=== PATIENT | female | born 1975 | race African-American/Black ===

== ENCOUNTER 2017-03-15 04:15 | Emergency (ER) | payer MEDICARE, MEDICAID ==
[~2017-03-15] VITALS: Ht 170.2 cm; Wt 108.9 kg
[2017-03-15 04:59] LABS: Basophils # (auto) 0 uL; Basophils % (auto) 0.2 % (0.0-2.0); DEFINITIVE VIEW TRANSMISSION; Eosinophils # (auto) 0 uL; Eosinophils % (auto) 0.1 % (0.0-7.0); Hematocrit 37.5 % (36.0-46.0); Hemoglobin 12.1 g/dL (12.2-16.2); Lymphocytes % (auto) 10.5 % (10.0-50.0); Mean Corpuscular Hemoglobin 25.7 pg (28.0-32.0); Mean Corpuscular Hgb Conc. 32.2 g/dL (32.0-36.0); Mean Corpuscular Volume 79.7 fL (80.0-100.0); Monocytes # (auto) 0.4 uL; Monocytes % (auto) 4.3 % (0.0-12.0); Neutrophils # (auto) 8.3 uL; Neutrophils % (auto) 84.9 % (37.0-80.0); Platelet Count (auto) 271 10^3/uL (140-450); White Blood Cell 9.8 10^3/uL (4.4-10.8)
[2017-03-15 05:13] LABS: Red Cell Distribution Width 23.3 % (11.6-16.0)
[2017-03-15 05:29] LABS: Albumin 3.4 g/dL (3.4-5.0); BUN/Creatinine Ratio 15.9; Calcium 8.4 mg/dL (8.5-10.1); Potassium 3.5 mmol/L (3.5-5.1)
[2017-03-15 05:31] LABS: Bilirubin, Total 0.2 mg/dL (0.2-1.0); Total Protein 7.9 g/dL (6.4-8.2)
[2017-03-15 05:42] LABS: Platelet Estimate Adequate
[2017-03-15 05:43] LABS: Anisocytosis Slight; Hypochromia Slight
[2017-03-15 05:59] LABS: B-Type Natriuretic Peptide 10.1 pg/mL (0-100)
[2017-03-15 06:00] LABS: Temperature: 22.7 C (20.0-25.0)
[2017-03-15 06:40] VITALS: BP 132/79
[2017-03-15] MEDS ORDERED: DICYCLOMINE HCL (10MG/ML) 2 ML AMPULE IM ONE ×2 (07:15)
[2017-03-15] MEDS ORDERED: diphenhdrAMINE HCL 50 MG/1 ML VL IM ONE (07:15)
[2017-03-15] MEDS ORDERED: LACTULOSE 20Gm/30ML SOLN PO ONE (07:15)
== END 2017-03-15 07:41 | disposition home or self-care (01) ==
LOC: ER 04:15
DX: K59.00 Constipation, unspecified (principal); N83.8 Other noninflammatory disorders of ovary, fallopian tube and broad ligament; I13.0 Hypertensive heart and chronic kidney disease with heart failure and stage 1 through stage 4 chronic kidney disease, or unspecified chronic kidney disease; N18.9 Chronic kidney disease, unspecified; I50.9 Heart failure, unspecified; Z87.442 Personal history of urinary calculi; Z90.49 Acquired absence of other specified parts of digestive tract
CPT/HCPCS: 36415; 74176; 80053; 83880; 84702; 85025; 96372; 99285; J0500; J1200

== ENCOUNTER 2017-09-16 03:50 | Emergency (ER) | payer OTHER, MEDICAID ==
[~2017-09-16] VITALS: Ht 170.2 cm; Wt 108.9 kg
[~2017-09-16 03:50] MED LIST: ALLO100T PO; DOCU100T15 PO; FERR325T PO; FLUO-125 PO; LACT10SO3 PO; MECL-87 PO; METO-158 PO; TRIATAB3 PO; [UNRECOGNIZED DRUG - CODE] PO
[2017-09-16] MEDS ORDERED: SODIUM CHLORIDE 0.9% 500 ML IVB ONE (04:08)
[2017-09-16] MEDS ORDERED: HYDROmorphone HCL 2 MG/ML VL IV ONE (04:15)
[2017-09-16] MEDS ORDERED: ONDANSETRON HCL 4 MG/2 ML VIAL IV ONE (04:30)
[2017-09-16] MEDS: PROMETHAZINE HCL 25 MG/ML 1ML IV PRN ×4 (05:10→14:29)
[2017-09-16 05:27] LABS: Basophils # (auto) 0.1 uL; Basophils % (auto) 0.8 % (0.0-2.0); Eosinophils # (auto) 0 uL; Hematocrit 34.6 % (36.0-46.0); Hemoglobin 11.1 g/dL (12.2-16.2); Lymphocytes # (auto) 0.8 uL; Lymphocytes % (auto) 7.7 % (10.0-50.0); Mean Corpuscular Hemoglobin 24.7 pg (28.0-32.0); Mean Corpuscular Hgb Conc. 32.2 g/dL (32.0-36.0); Mean Corpuscular Volume 76.8 fL (80.0-100.0); Mean Platelet Volume 8.7 fL (6.9-10.8); Monocytes # (auto) 0.4 uL; Monocytes % (auto) 4.1 % (0.0-12.0); Neutrophils # (auto) 9.3 uL; Neutrophils % (auto) 87.4 % (37.0-80.0); Nucleated Red Blood Cells % 0.1 %; Platelet Count (auto) 387 10^3/uL (140-450); Red Cell Distribution Width 14.7 % (11.8-14.3); White Blood Cell 10.7 10^3/uL (4.4-10.8)
[2017-09-16 06:01] LABS: Albumin 3.8 g/dL (3.4-5.0); BUN/Creatinine Ratio 11.2; Bilirubin, Total 0.3 mg/dL (0.2-1.0); Calcium 8.6 mg/dL (8.5-10.1); Potassium 3.5 mmol/L (3.5-5.1); Total Protein 8.8 g/dL (6.4-8.2)
[2017-09-16] MEDS ORDERED: SODIUM CHLORIDE 0.9% 1,000 ML IV ONE (06:43)
[2017-09-16] MEDS ORDERED: KETOROLAC TROMETH 30 MG/ML 1ML VIAL IV ONE (06:45)
[2017-09-16] MEDS ORDERED: PROMETHAZINE HCL 25 MG/ML 1ML IV PRN ×2 (06:45→15:15)
[2017-09-16 07:37] LABS: INR 1.01 (0.9-1.15); Partial Thromboplastin Time 25.5 sec (22.64-33.71)
[2017-09-16 09:58] LABS: Urine Bilirubin Negative (Negative); Urine Blood Negative /uL (Negative); Urine Color Yellow (Yellow); Urine Glucose TRACE mg/dL (Normal); Urine Ketone Negative (Negative); Urine Mucus FEW (None Seen); Urine Nitrite Negative (Negative); Urine RBC 1 /hpf (0 - 4); Urine Squamous Epithelial Cell FEW /hpf (<5); Urine Urobilinogen Normal (Negative); Urine pH 7.5 (5.0-8.0)
[2017-09-16] MEDS ORDERED: NALBUPHINE HCL 10 MG/1ml INJECTION IV ONE (14:15)
[2017-09-16] MEDS ORDERED: SODIUM CHLORIDE 0.9% 1,000 ML IV SCH (15:14)
[2017-09-16] MEDS ORDERED: LORazepam 2MG/ML-1ML VIAL IV PRN (15:15)
[2017-09-16] MEDS ORDERED: cefTRIAXone 1GM/50ML D5W 50 ML IV ONE (15:15)
[2017-09-16] MEDS ORDERED: HYDROmorphone HCL 2 MG/ML VL IV PRN (15:15)
[2017-09-16] MEDS ORDERED: NITROGLYCERIN 0.4 MG SL TAB SL PRN (15:15)
[2017-09-16] MEDS ORDERED: MORPHINE SULF INJ 2 MG/ML SYRINGE 1ML IV PRN ×2 (15:15)
[2017-09-16] MEDS ORDERED: FAMOTIDINE (10MG/ML) 2ML VL IV SCH (15:15)
[2017-09-16 17:30] VITALS: BP 136/97
[2017-09-16] MEDS ORDERED: metroNIDAZOLE 500MG/100ML 100 ML IV SCH (18:00)
[2017-09-17] MEDS ORDERED: cefTRIAXone 1GM/50ML D5W 50 ML IV SCH (09:00)
== END 2017-09-16 19:30 | disposition left against medical advice (07) ==
LOC: ER 03:50 → EDBD 03:50 → ER 19:30
DX: K56.609 Unspecified intestinal obstruction, unspecified as to partial versus complete obstruction (principal); D50.9 Iron deficiency anemia, unspecified; E11.65 Type 2 diabetes mellitus with hyperglycemia; I13.0 Hypertensive heart and chronic kidney disease with heart failure and stage 1 through stage 4 chronic kidney disease, or unspecified chronic kidney disease; I50.9 Heart failure, unspecified; N18.9 Chronic kidney disease, unspecified; Z87.442 Personal history of urinary calculi; Z79.899 Other long term (current) drug therapy; Z93.3 Colostomy status; Z98.890 Other specified postprocedural states
CPT/HCPCS: 36415; 74176; 80053; 81001; 81025; 82150; 83690; 83735; 84443; 85025; 85610; 85730; 94761; 96361; 96365; 96368; 96375; 99285; J0696; J1170; J1885; J2300; J2405; J2550; J3490; J7030

== ENCOUNTER 2023-09-24 14:48 | Inpatient (IN) | payer OTHER, MEDICAID ==
[~2023-09-24] VITALS: Ht 170.2 cm; Wt 92.6 kg
[~2023-09-24 14:48] MED LIST changes: -FERR325T PO; +FERR325T24 PO; -MECL-87 PO; +MECL1TAB32 PO
[2023-09-24] MEDS ORDERED: FUROSEMIDE 40 MG/4 ML VIAL IV ONE (16:30)
[2023-09-24] MEDS ORDERED: cefTRIAXone 1GM/50ML D5W 50 ML IV ONE (16:30)
[2023-09-24] MEDS ORDERED: AZITHROMYCIN 500MG/ 250ML 250 ML IV ONE (16:30)
[2023-09-24 16:50] LABS: COVID19 ANTIGEN SOFIA FIA NEGATIVE (NEGATIVE)
[2023-09-24 17:26] LABS: Alanine Aminotransferase 15 U/L (7-40); Alkaline Phosphatase 53 U/L (46-116); Calcium 8.1 mg/dL (8.5-10.1); Carbon Dioxide 27 mmol/L (20-30); Chloride 104 mmol/L (98-107); Glucose 126 mg/dL (74-106); Sodium 138 mmol/L (136-145)
[2023-09-24 17:27] LABS: Albumin 4.1 g/dL (3.2-4.8); Anion Gap 7 (5-15); Aspartate Aminotransferase 59 U/L (13-40); BUN/Creatinine Ratio 12.7 (10.0-20.0); Bilirubin, Total 0.6 mg/dL (0.2-1.0); Blood Urea Nitrogen 15 mg/dL (9-23); Total Protein 6.8 g/dL (5.7-8.2)
[2023-09-24 17:54] LABS: Eosinophils # (auto) 0 10 ^3/uL (0-0.8); Lymphocytes # (auto) 0.9 10 ^3/uL (0.4-5.4); Neutrophils # (auto) 4.5 10 ^3/uL (1.6-8.6); Red Blood Cells 3.57 10^6/uL (4.0-5.20)
[2023-09-24 17:56] LABS: Basophils # (auto) 0 10 ^3/uL (0-0.2); Basophils % (auto) 0.6 % (0.0-2.0); Hematocrit 23.3 % (36.0-46.0); Lymphocytes % (auto) 15.2 % (10.0-50.0); Mean Corpuscular Hemoglobin 19.5 pg (28.0-32.0); Mean Corpuscular Hgb Conc. 29.8 g/dL (32.0-36.0); Mean Corpuscular Volume 65.3 fL (80.0-100.0); Monocytes # (auto) 0.5 10 ^3/uL (0-1.3); Monocytes % (auto) 8.1 % (0.0-12.0); Neutrophils % (auto) 76.1 % (37.0-80.0); Nucleated Red Blood Cells % 0.2 %
[2023-09-24 17:58] LABS: Red Cell Distribution Width 22.1 % (11.8-14.3)
[2023-09-24 18:53] LABS: Partial Thromboplastin Time 32.9 SEC (24.5-34.5); Prothrombin Time 10.5 sec (9.3-11.8)
[2023-09-24] MEDS: FUROSEMIDE 20 MG/2 ML VIAL IV SCH (20:00)
[2023-09-24 20:09] LABS: Hematocrit 23.6 % (36.0-46.0)
[2023-09-24 20:46] LABS: % Iron Saturation 5.2 % (15-50); Folate (Folic Acid) 19.51 ng/mL (>5.38)
[2023-09-24 20:47] LABS: Ferritin 49.7 ng/mL (10-291)
[2023-09-24] MEDS: ACETAMINOPHEN 325 MG TAB PO PRN (21:49)
[2023-09-24] MEDS: ATORVASTATIN 20 MG TAB PO SCH (22:41)
[2023-09-25] VITALS (18 sets, daily range): BP systolic 105–132; BP diastolic 61–92; PULSE 68–93; RESP 11–22; TEMP 37.7; O2SAT 91–98
[2023-09-25] MEDS: ACETAMINOPHEN 325 MG TAB PO PRN ×3 (06:35→21:03)
[2023-09-25] MEDS: FUROSEMIDE 20 MG/2 ML VIAL IV SCH ×2 (06:35→19:06)
[2023-09-25 07:07] LABS: Urine Bacteria FEW /hpf (None Seen); Urine Blood 2+ /uL (Negative); Urine Clarity Clear (Clear); Urine Color Yellow (Yellow); Urine Protein, UAD TRACE (Negative); Urine Specific Gravity 1.014 (1.001-1.035); Urine Urobilinogen Normal (Negative); Urine WBC 3 /hpf (0 - 5)
[2023-09-25 07:36] LABS: Creatinine, Urine 119.91 mg/dL (30.0-125.0)
[2023-09-25] MEDS: cefTRIAXone 1GM/50ML D5W 50 ML IV SCH (09:43)
[2023-09-25 09:44] LABS: Rapid Influenza A Negative (Negative); Rapid Influenza B Negative (Negative)
[2023-09-25] MEDS ORDERED: PANTOPRAZOLE 40 MG/10 ML VIAL INJ IV SCH (10:00)
[2023-09-25] MEDS ORDERED: AZITHROMYCIN 500MG/ 250ML 250 ML IV SCH (10:00)
[2023-09-25] MEDS ORDERED: METHADONE HCL 10 MG TAB PO SCH (10:00)
[2023-09-25 10:15] LABS: Eosinophils # (auto) 0 10 ^3/uL (0-0.8); Hemoglobin 8.5 g/dL (12.2-16.2); Lymphocytes # (auto) 0.8 10 ^3/uL (0.4-5.4); Monocytes # (auto) 0.4 10 ^3/uL (0-1.3); Monocytes % (auto) 6.4 % (0.0-12.0); Neutrophils # (auto) 5.3 10 ^3/uL (1.6-8.6)
[2023-09-25 10:17] LABS: Basophils # (auto) 0 10 ^3/uL (0-0.2); Basophils % (auto) 0.3 % (0.0-2.0); Hematocrit 27.8 % (36.0-46.0); Lymphocytes % (auto) 12.6 % (10.0-50.0); Mean Corpuscular Hemoglobin 21.3 pg (28.0-32.0); Mean Corpuscular Hgb Conc. 30.7 g/dL (32.0-36.0); Mean Corpuscular Volume 69.3 fL (80.0-100.0); Neutrophils % (auto) 80.7 % (37.0-80.0); Nucleated Red Blood Cells % 0.1 %; Red Blood Cells 4.02 10^6/uL (4.0-5.20); White Blood Cell 6.6 10^3/uL (4.4-10.8)
[2023-09-25 10:24] LABS: Red Cell Distribution Width 25.1 % (11.8-14.3)
[2023-09-25] MEDS: PANTOPRAZOLE 40 MG/10 ML VIAL INJ IV SCH (10:25)
[2023-09-25 10:29] LABS: Alanine Aminotransferase 13 U/L (7-40); Albumin 4.1 g/dL (3.2-4.8); Alkaline Phosphatase 53 U/L (46-116); Anion Gap 4 (5-15); Aspartate Aminotransferase 46 U/L (13-40); Blood Urea Nitrogen 9 mg/dL (9-23); Calcium 8.2 mg/dL (8.5-10.1); Carbon Dioxide 29 mmol/L (20-30); Chloride 104 mmol/L (98-107); Glucose 148 mg/dL (74-106); Potassium 3.3 mmol/L (3.5-5.1); Sodium 137 mmol/L (136-145); Total Protein 7.1 g/dL (5.7-8.2)
[2023-09-25] MEDS ORDERED: POTASSIUM EFFERVESENT TAB 25 MEQ PO ONE (11:30)
[2023-09-25 12:42] LABS: Platelet Estimate Adequate
[2023-09-25 12:43] LABS: Anisocytosis Moderate
[2023-09-25 12:44] LABS: Hypochromia Moderate; Ovalocytes MODERATE; Tear Drop Cells FEW
[2023-09-25] MEDS: METHADONE HCL 10 MG TAB PO SCH ×3 (12:55→23:26)
[2023-09-25] MEDS: ALBUTEROL SULF 2.5 MG/0.5ML(0.5%) NEB SOLN NEB SCH (18:00)
[2023-09-25] MEDS: IPRATROPIUM BROM 0.5 MG/2.5ML INH SOL NEB SCH (18:00)
[2023-09-25] MEDS ORDERED: ALBUTEROL MEDNEB 2.5 mg/3ml NEB ONE (18:05)
[2023-09-25] MEDS: ATORVASTATIN 20 MG TAB PO SCH (23:26)
[2023-09-25] MEDS: METOPROLOL TARTRATE 25 MG TAB PO SCH (23:27)
[2023-09-26] VITALS (13 sets, daily range): BP systolic 118–137; BP diastolic 70–92; PULSE 72–85; RESP 17–20; TEMP 98.9–100.4; O2SAT 88–100
[2023-09-26] MEDS: ACETAMINOPHEN 325 MG TAB PO PRN ×3 (04:33→21:33)
[2023-09-26] MEDS ORDERED: ALBUTEROL MEDNEB 2.5 mg/3ml NEB ONE ×3 (06:03→17:53)
[2023-09-26] MEDS: METHADONE HCL 10 MG TAB PO SCH ×3 (06:05→21:31)
[2023-09-26] MEDS: FUROSEMIDE 20 MG/2 ML VIAL IV SCH (06:06)
[2023-09-26] MEDS: IPRATROPIUM BROM 0.5 MG/2.5ML INH SOL NEB SCH ×4 (07:23→18:45)
[2023-09-26] MEDS: ALBUTEROL SULF 2.5 MG/0.5ML(0.5%) NEB SOLN NEB SCH ×4 (07:23→18:46)
[2023-09-26] MEDS: BUDESONIDE (INHALATION) 0.5 MG/2 ML NEB NEB SCH ×3 (07:23→18:45)
[2023-09-26 07:27] LABS: Basophils # (auto) 0 10 ^3/uL (0-0.2); Basophils % (auto) 0.5 % (0.0-2.0); Eosinophils # (auto) 0 10 ^3/uL (0-0.8); Hematocrit 31.7 % (36.0-46.0); Hemoglobin 9.6 g/dL (12.2-16.2); Lymphocytes # (auto) 1.5 10 ^3/uL (0.4-5.4); Lymphocytes % (auto) 17.4 % (10.0-50.0); Mean Corpuscular Hemoglobin 21.3 pg (28.0-32.0); Mean Corpuscular Hgb Conc. 30.4 g/dL (32.0-36.0); Monocytes # (auto) 0.8 10 ^3/uL (0-1.3); Monocytes % (auto) 9.2 % (0.0-12.0); Neutrophils # (auto) 6.4 10 ^3/uL (1.6-8.6); Neutrophils % (auto) 72.9 % (37.0-80.0); Nucleated Red Blood Cells % 0.6 %; Red Blood Cells 4.53 10^6/uL (4.0-5.20); Red Cell Distribution Width 25.2 % (11.8-14.3); White Blood Cell 8.8 10^3/uL (4.4-10.8)
[2023-09-26 07:29] LABS: Chloride 101 mmol/L (98-107); Potassium 3.5 mmol/L (3.5-5.1); Sodium 137 mmol/L (136-145)
[2023-09-26 07:30] LABS: Anion Gap 6 (5-15); Calcium 8.9 mg/dL (8.5-10.1); Carbon Dioxide 30 mmol/L (20-30)
[2023-09-26 07:35] LABS: BUN/Creatinine Ratio 7.7 (10.0-20.0); Blood Urea Nitrogen 9 mg/dL (9-23); Glucose 100 mg/dL (74-106)
[2023-09-26] MEDS ORDERED: POTASSIUM EFFERVESENT TAB 25 MEQ PO ONE (08:30)
[2023-09-26] MEDS: PANTOPRAZOLE 40 MG/10 ML VIAL INJ IV SCH (09:53)
[2023-09-26] MEDS: METOPROLOL TARTRATE 25 MG TAB PO SCH ×2 (09:54→21:33)
[2023-09-26] MEDS: FUROSEMIDE 20 MG TAB PO SCH (09:55)
[2023-09-26] MEDS: DOXYCYCLINE 100MG/250ML 250 ML IV SCH ×2 (09:55→21:34)
[2023-09-26] MEDS: cefTRIAXone 1GM/50ML D5W 50 ML IV SCH (10:15)
[2023-09-26] MEDS ORDERED: IRON SUCROSE COMPLEX 200 MG in SODIUM CHL 0.9% 100 ML IV SCH (12:00)
[2023-09-26] MEDS: SODIUM FERR GLUC 62.5MG/5ML 125 MG in SODIUM CHL 0.9% 100 ML IV SCH (13:01)
[2023-09-26] MEDS: ATORVASTATIN 20 MG TAB PO SCH (21:33)
[2023-09-27] VITALS (9 sets, daily range): BP systolic 140–158; BP diastolic 83–94; PULSE 57–86; RESP 16–21; TEMP 97.9–98.5; O2SAT 91–100
[2023-09-27 05:29] LABS: Basophils # (auto) 0 10 ^3/uL (0-0.2); Eosinophils # (auto) 0 10 ^3/uL (0-0.8); Eosinophils % (auto) 0.1 % (0.0-7.0); Hemoglobin 8.4 g/dL (12.2-16.2); Nucleated Red Blood Cells % 0.3 %
[2023-09-27 05:32] LABS: Basophils % (auto) 0.4 % (0.0-2.0); Hematocrit 27.1 % (36.0-46.0); Lymphocytes # (auto) 1.5 10 ^3/uL (0.4-5.4); Lymphocytes % (auto) 19.8 % (10.0-50.0); Mean Corpuscular Hemoglobin 21.6 pg (28.0-32.0); Mean Corpuscular Volume 69.5 fL (80.0-100.0); Monocytes # (auto) 0.7 10 ^3/uL (0-1.3); Monocytes % (auto) 9.3 % (0.0-12.0); Neutrophils # (auto) 5.4 10 ^3/uL (1.6-8.6); Neutrophils % (auto) 70.4 % (37.0-80.0); White Blood Cell 7.7 10^3/uL (4.4-10.8)
[2023-09-27 05:45] LABS: Red Cell Distribution Width 25.6 % (11.8-14.3)
[2023-09-27 05:52] LABS: Anion Gap 7 (5-15); Calcium 8.8 mg/dL (8.5-10.1); Carbon Dioxide 29 mmol/L (20-30); Chloride 102 mmol/L (98-107); Potassium 3.5 mmol/L (3.5-5.1); Sodium 138 mmol/L (136-145)
[2023-09-27 05:58] LABS: BUN/Creatinine Ratio 12.1 (10.0-20.0); Blood Urea Nitrogen 12 mg/dL (9-23); Glucose 109 mg/dL (74-106)
[2023-09-27] MEDS: METHADONE HCL 10 MG TAB PO SCH ×2 (06:08→11:38)
[2023-09-27] MEDS: ALBUTEROL SULF 2.5 MG/0.5ML(0.5%) NEB SOLN NEB SCH ×2 (06:54→13:30)
[2023-09-27] MEDS: IPRATROPIUM BROM 0.5 MG/2.5ML INH SOL NEB SCH ×2 (06:54→13:29)
[2023-09-27] MEDS: BUDESONIDE (INHALATION) 0.5 MG/2 ML NEB NEB SCH (06:54)
[2023-09-27 08:06] LABS: Anisocytosis Moderate; Hypochromia Slight; Platelet Estimate Decreased
[2023-09-27] MEDS: PANTOPRAZOLE 40 MG/10 ML VIAL INJ IV SCH (09:31)
[2023-09-27] MEDS: DOXYCYCLINE 100MG/250ML 250 ML IV SCH (09:33)
[2023-09-27] MEDS: ACETAMINOPHEN 325 MG TAB PO PRN (09:34)
[2023-09-27] MEDS: FUROSEMIDE 20 MG TAB PO SCH (09:34)
[2023-09-27] MEDS: METOPROLOL TARTRATE 25 MG TAB PO SCH (09:38)
[2023-09-27] MEDS ORDERED: cefTRIAXone 1GM/50ML D5W 50 ML IV SCH (11:00)
[2023-09-27] MEDS: SODIUM FERR GLUC 62.5MG/5ML 125 MG in SODIUM CHL 0.9% 100 ML IV SCH ×2 (12:00→14:37)
[2023-09-27] MEDS ORDERED: FURO1TAB33 PO (14:12)
[2023-09-27] MEDS ORDERED: PRED20TA2 PO (14:12)
[2023-09-27] MEDS ORDERED: ALBUAER3 IN (14:12)
[2023-09-27] MEDS ORDERED: DOXY-448 PO (14:12)
[2023-09-27] MEDS ORDERED: POTA8TAB38 PO (14:12)
[2023-09-27] MEDS: POLYETHYLENE GLYCOL 17 GM PWDR PO ONE ×2 (14:36→14:45)
[2023-09-27] MEDS ORDERED: ALBUTEROL MEDNEB 2.5 mg/3ml NEB ONE (17:52)
== END 2023-09-27 17:30 | disposition home or self-care (01) | DRG 177 ==
LOC: ER 14:48 → TELE 18:50 → WEST WING 09-25 23:10
PROVIDERS: ADMIT Nurse Practitioner Family; ATTEND Nurse Practitioner Acute Care
PROC: 30233N1 Transfusion of Nonautologous Red Blood Cells into Peripheral Vein, Percutaneous Approach (ICD-10-PCS; principal; 2023-09-25)
DX: J15.69 Pneumonia due to other Gram-negative bacteria (principal); I21.A1 Myocardial infarction type 2; I50.43 Acute on chronic combined systolic (congestive) and diastolic (congestive) heart failure; J96.01 Acute respiratory failure with hypoxia; D62 Acute posthemorrhagic anemia; I13.0 Hypertensive heart and chronic kidney disease with heart failure and stage 1 through stage 4 chronic kidney disease, or unspecified chronic kidney disease; J44.0 Chronic obstructive pulmonary disease with (acute) lower respiratory infection; N17.9 Acute kidney failure, unspecified; J15.9 Unspecified bacterial pneumonia; K58.9 Irritable bowel syndrome, unspecified; Z20.822 Contact with and (suspected) exposure to COVID-19; D50.9 Iron deficiency anemia, unspecified; D25.9 Leiomyoma of uterus, unspecified; G89.29 Other chronic pain; N18.9 Chronic kidney disease, unspecified; E66.9 Obesity, unspecified; E78.5 Hyperlipidemia, unspecified; F17.200 Nicotine dependence, unspecified, uncomplicated; I27.21 Secondary pulmonary arterial hypertension; Z79.899 Other long term (current) drug therapy; Z80.0 Family history of malignant neoplasm of digestive organs; Z87.442 Personal history of urinary calculi; Z90.710 Acquired absence of both cervix and uterus; Z93.3 Colostomy status; Z78.0 Asymptomatic menopausal state
CPT/HCPCS: 36415; 36430; 71045; 71250; 76856; 80048; 80053; 81001; 82570; 82607; 82728; 82746; 83540; 83550; 83605; 83615; 83880; 84300; 84484; 85014; 85018; 85025; 85045; 85379; 85610; 85730; 86850; 86870; 86900; 86901; 86902; 86922; 87040; 87081; 87426; 87804; 93005; 93306; 93970; 94640; 99291; C9113; G0378; J0696; J1756; J3490

== ENCOUNTER 2024-07-30 13:44 | Inpatient (IN) | payer OTHER, MEDICAID ==
[~2024-07-30] VITALS: Ht 170.2 cm; Wt 86.5 kg
[~2024-07-30 13:44] MED LIST changes: +ALBUAER3 IN; +DOXY100C79 PO; +FURO1TAB33 PO; +MECL-90 PO; -MECL1TAB32 PO; +POTA8TAB38 PO; +PRED20TA2 PO
[2024-07-30 17:30] LABS: Basophils # (auto) 0.2 10 ^3/uL (0-0.2); Basophils % (auto) 2.9 % (0.0-2.0); Eosinophils # (auto) 0 10 ^3/uL (0-0.8); Eosinophils % (auto) 0.6 % (0.0-7.0); Hematocrit 17.9 % (36.0-46.0); Lymphocytes # (auto) 1.9 10 ^3/uL (0.4-5.4); Lymphocytes % (auto) 27.2 % (10.0-50.0); Mean Corpuscular Hemoglobin 20.5 pg (28.0-32.0); Mean Corpuscular Volume 68.2 fL (80.0-100.0); Monocytes # (auto) 0.6 10 ^3/uL (0-1.3); Neutrophils # (auto) 4.3 10 ^3/uL (1.6-8.6); Neutrophils % (auto) 61.3 % (37.0-80.0); Nucleated Red Blood Cells % 0.2 %; Platelet Count (auto) 558 10^3/uL (140-450); Red Blood Cells 2.62 10^6/uL (4.0-5.20)
[2024-07-30 17:34] LABS: Red Cell Distribution Width 25.5 % (11.8-14.3)
[2024-07-30 17:39] LABS: Hemoglobin 5.4 g/dL (12.2-16.2)
[2024-07-30 17:48] LABS: Alanine Aminotransferase 11 U/L (7-40); Albumin 3.9 g/dL (3.2-4.8); Alkaline Phosphatase 76 U/L (46-116); Anion Gap 4 (5-15); Aspartate Aminotransferase 13 U/L (13-40); BUN/Creatinine Ratio 16.4 (10.0-20.0); Bilirubin, Total 0.3 mg/dL (0.2-1.0); Blood Urea Nitrogen 18 mg/dL (9-23); Carbon Dioxide 30 mmol/L (20-31); Chloride 105 mmol/L (98-107); Glucose 80 mg/dL (74-106); Potassium 4.7 mmol/L (3.5-5.1); Sodium 139 mmol/L (136-145); Total Protein 8.1 g/dL (5.7-8.2)
[2024-07-30 18:50] LABS: Anisocytosis Moderate; Platelet Estimate Adequate
[2024-07-30 18:51] LABS: Hypochromia Marked; Stomatocytes Few
[2024-07-30 19:31] VITALS: PULSE 78; RESP 18; O2SAT 98
[2024-07-30] MEDS: SODIUM CHLORIDE 0.9% 1,000 ML IV ONE (19:49)
[2024-07-30 20:21] LABS: Urine Bacteria None Seen /hpf (None Seen)
[2024-07-30 20:39] LABS: Urine Blood 2+ /uL (Negative); Urine Clarity Clear (Clear); Urine Color Light-Yellow (Yellow); Urine Epithelial Cast FEW /hpf (<5); Urine Protein, UAD Negative (Negative); Urine Specific Gravity 1.019 (1.001-1.035); Urine Urobilinogen Normal (Negative); Urine WBC 1 /hpf (0 - 5)
[2024-07-30 21:12] LABS: INR 1.08 (0.9-1.15); Partial Thromboplastin Time 24.5 SEC (24.5-34.5); Prothrombin Time 11.4 sec (9.3-11.8)
[2024-07-30 21:17] LABS: Rapid Influenza A Negative (Negative); Rapid Influenza B Negative (Negative)
[2024-07-30 21:18] LABS: COVID19 ANTIGEN SOFIA FIA NEGATIVE (NEGATIVE)
[2024-07-30] MEDS: ONDANSETRON HCL 4 MG/2 ML VIAL IV ONE (21:40)
[2024-07-30] MEDS: HYDROcodone-ACET 5/325MG TAB PO ONE (21:41)
[2024-07-30] MEDS ORDERED: MORPHINE SULFATE INJ 2 MG/ml SYRG IV PRN (23:45)
[2024-07-30] MEDS ORDERED: HYDROcodone-ACET 5/325MG TAB PO PRN (23:45)
[2024-07-30] MEDS ORDERED: ACETAMINOPHEN 500 MG TAB PO PRN (23:45)
[2024-07-31] VITALS (14 sets, daily range): BP systolic 124–157; BP diastolic 75–92; PULSE 45–65; RESP 16–20; TEMP 98.2–98.9; O2SAT 99–100
[2024-07-31] MEDS ORDERED: MECLIZINE HCL 25 MG TAB PO PRN
[2024-07-31] MEDS: TRIAMTERENE/HCTZ 37.5/25 MG CAP/TAB PO SCH (00:15)
[2024-07-31 01:25] LABS: Free T3 2.29 pg/mL (2.3-4.2)
[2024-07-31 01:26] LABS: Free T4 (Free Thyroxine) 0.76 ng/dL (0.89-1.76)
[2024-07-31] MEDS: FUROSEMIDE 20 MG/2 ML VIAL IV SCH (03:30)
[2024-07-31 08:45] LABS: Basophils # (auto) 0.1 10 ^3/uL (0-0.2); Basophils % (auto) 1.2 % (0.0-2.0); Eosinophils # (auto) 0 10 ^3/uL (0-0.8); Monocytes # (auto) 0.6 10 ^3/uL (0-1.3)
[2024-07-31 08:49] LABS: Eosinophils % (auto) 0.5 % (0.0-7.0); Hematocrit 25.5 % (36.0-46.0); Lymphocytes # (auto) 0.6 10 ^3/uL (0.4-5.4); Lymphocytes % (auto) 8.5 % (10.0-50.0); Mean Corpuscular Hemoglobin 22.9 pg (28.0-32.0); Mean Corpuscular Hgb Conc. 31.3 g/dL (32.0-36.0); Mean Corpuscular Volume 73.1 fL (80.0-100.0); Monocytes % (auto) 8.7 % (0.0-12.0); Neutrophils % (auto) 81.1 % (37.0-80.0); Nucleated Red Blood Cells % 0.2 %; Platelet Count (auto) 478 10^3/uL (140-450); Red Blood Cells 3.48 10^6/uL (4.0-5.20); Red Cell Distribution Width 29.4 % (11.8-14.3); White Blood Cell 7.4 10^3/uL (4.4-10.8)
[2024-07-31 09:09] LABS: Alanine Aminotransferase 10 U/L (7-40); Albumin 4.2 g/dL (3.2-4.8); Alkaline Phosphatase 73 U/L (46-116); Anion Gap 2 (5-15); Aspartate Aminotransferase 18 U/L (13-40); BUN/Creatinine Ratio 12.9 (10.0-20.0); Bilirubin, Total 2.5 mg/dL (0.2-1.0); Blood Urea Nitrogen 13 mg/dL (9-23); Calcium 9.3 mg/dL (8.7-10.4); Carbon Dioxide 31 mmol/L (20-31); Chloride 101 mmol/L (98-107); Glucose 92 mg/dL (74-106); Potassium 3.9 mmol/L (3.5-5.1); Total Protein 9.1 g/dL (5.7-8.2)
[2024-07-31 09:13] LABS: Sodium 134 mmol/L (136-145)
[2024-07-31] MEDS ORDERED: FUROSEMIDE 20 MG TAB PO SCH (10:00)
[2024-07-31] MEDS ORDERED: ALLOPURINOL 100 MG TAB PO SCH (10:00)
[2024-07-31] MEDS ORDERED: LEVOTHYROXINE SODIUM 88 MCG TAB PO ONE (10:00)
[2024-07-31] MEDS ORDERED: METOPROLOL TARTRATE 50 MG TAB PO SCH (10:00)
[2024-07-31] MEDS ORDERED: FLUoxetine HCL 20 MG CAP PO SCH ×2 (10:00)
[2024-07-31] MEDS ORDERED: IRON SUCROSE COMPLEX 100 ML IV SCH (12:00)
[2024-07-31] MEDS ORDERED: FUROSEMIDE 20 MG/2 ML VIAL IV ONE (12:00)
[2024-08-01] MEDS ORDERED: LEVOTHYROXINE SODIUM 88 MCG TAB PO SCH (06:00)
== END 2024-07-31 10:00 | disposition left against medical advice (07) | DRG 811 ==
LOC: ER 13:46 → TELE 23:40
PROVIDERS: ATTEND Internal Medicine
PROC: 30233N1 Transfusion of Nonautologous Red Blood Cells into Peripheral Vein, Percutaneous Approach (ICD-10-PCS; principal; 2024-07-31)
DX: D62 Acute posthemorrhagic anemia (principal); I50.43 Acute on chronic combined systolic (congestive) and diastolic (congestive) heart failure; J96.01 Acute respiratory failure with hypoxia; I13.0 Hypertensive heart and chronic kidney disease with heart failure and stage 1 through stage 4 chronic kidney disease, or unspecified chronic kidney disease; J44.9 Chronic obstructive pulmonary disease, unspecified; Z53.29 Procedure and treatment not carried out because of patient's decision for other reasons; F32.9 Major depressive disorder, single episode, unspecified; E11.22 Type 2 diabetes mellitus with diabetic chronic kidney disease; N18.2 Chronic kidney disease, stage 2 (mild); I71.21 Aneurysm of the ascending aorta, without rupture; M10.9 Gout, unspecified; I27.20 Pulmonary hypertension, unspecified; D25.9 Leiomyoma of uterus, unspecified; Z79.4 Long term (current) use of insulin; Z87.442 Personal history of urinary calculi
CPT/HCPCS: 36415; 71045; 76856; 80053; 81001; 82306; 82607; 82962; 83036; 83605; 83880; 84439; 84443; 84481; 84484; 84702; 85025; 85610; 85730; 86850; 86870; 86900; 86901; 86902; 86922; 87426; 87804; 93005; 96361; 96374; G0378; J2405

== ENCOUNTER 2025-01-02 14:11 | Inpatient (IN) | payer OTHER, MEDICAID ==
[~2025-01-02] VITALS: Ht 170.2 cm; Wt 96.9 kg
[2025-01-02] VITALS (11 sets, daily range): BP systolic 140–165; BP diastolic 83–100; PULSE 52–65; RESP 11–18; TEMP 97.9–98.8; O2SAT 97–100
[2025-01-02 14:48] LABS: Basophils # (auto) 0.1 10 ^3/uL (0-0.2); Eosinophils # (auto) 0.1 10 ^3/uL (0-0.8); Hemoglobin 7.7 g/dL (12.2-16.2); Mean Corpuscular Volume 78.7 fL (80.0-100.0); White Blood Cell 6.4 10^3/uL (4.4-10.8)
[2025-01-02 14:49] LABS: Basophils % (auto) 1.5 % (0.0-2.0); Eosinophils % (auto) 1.2 % (0.0-7.0); Hematocrit 24.2 % (36.0-46.0); Lymphocytes % (auto) 31.7 % (10.0-50.0); Mean Corpuscular Hemoglobin 24.9 pg (28.0-32.0); Mean Corpuscular Hgb Conc. 31.6 g/dL (32.0-36.0); Monocytes # (auto) 0.4 10 ^3/uL (0-1.3); Monocytes % (auto) 6.5 % (0.0-12.0); Neutrophils # (auto) 3.8 10 ^3/uL (1.6-8.6); Neutrophils % (auto) 59.1 % (37.0-80.0); Nucleated Red Blood Cells % 0.2 %; Platelet Count (auto) 84 10^3/uL (140-450); Red Blood Cells 3.08 10^6/uL (4.0-5.20)
[2025-01-02 14:57] LABS: Chloride 106 mmol/L (98-107); Potassium 3.9 mmol/L (3.5-5.1); Sodium 139 mmol/L (136-145)
--- NOTE | 2025-01-02 14:57 | ED.PDOC ---
HOSPITALIST PHYSICIAN HPI Comments A 50 YEAR OLD FEMALE PRESENTS TO THE ED WITH COMPLAINT OF VAGINAL BLEEDING, DIZZINESS, AND FATIGUE. PATIENT STATES SHE HAS A HISTORY OF ANEMIA AND CHRONIC VAGINAL BLEEDING AND HAS BEEN EXPERIENCING VAGINAL BLEEDING OFF AND ON SINCE 2021. PATIENT REPORTS SHE HAD SURGERY TO REMOVE A UTERINE FIBROID IN 2021, BUT NOTES SHE HAS BEEN EXPERIENCING BLEEDING SINCE THEN. PATIENT STATES SHE HAS BEEN EXPERIENCING DIZZINESS, FATIGUE, AND MILD SHORTNESS OF BREATHE OVER THE LAST 2 WEEKS. PATIENT IS CONCERNED SHE MAY BE ANEMIC AGAIN SINCE SHE HAS A HISTORY OF ANEMIA AND HAD BLOOD TRANSFUSION LAST YEAR. PATIENT DENIES DYSURIA, HEMATURIA, VAGINAL DISCHARGE, FEVER, CHILLS, SHORTNESS OF BREATH, CHEST PAIN, ABDOMINAL PAIN, NAUSEA, VOMITING, HEADACHE, OR OTHER COMPLAINTS. NO OTHER SYMPTOMS OR MODIFYING FACTORS AT THIS TIME. PATIENT IS ALERT, ORIENTED X 4, AND HAS STEADY GAIT. Chief Complaint: Vaginal Bleed Time Seen by MD: 14:19 Reviewed Notes: Nurses Notes, Medications, Allergies Allergies: Coded Allergies: NO KNOWN ALLERGIES (Unverified , 03/15/17) Home Meds Active Scripts Potassium Chloride (Klor-Con 8) 8 Meq Tab, 8 MEQ PO DAILY for 60 Days, #60 TAB Prov:ALYSSA MERCER CONTENT CHECKER 09/27/23 Furosemide (Lasix) 20 Mg Tb, 1 TAB PO DAILY, #90 TAB 1 Refill Prov:ALYSSA MERCER NP 09/27/23 Albuterol Sulfate (VENTOLIN MDI) 90 Mcg Ih, 90 MCG IN Q4HP PRN for 30 Days, #1 INH 1 Refill Prov:ALYSSA MERCER NP 09/27/23 Prednisone (Prednisone) 20 Mg Tab, 20 MG PO DAILY for 5 Days, #5 MG Prov:ALYSSA MERCER CONTENT CHECKER 09/27/23 Doxycycline (Monohydrate) (Doxycycline) 100 Mg Cap, 1 MG PO BID for 7 Days, #14 CAP Prov:ALYSSA MERCER NP 09/27/23 Reported Medications Allopurinol (Allopurinol) 100 Mg Tab, 100 MG PO DAILY for 30 Days, MG 09/15/17 Fluoxetine Hcl (Fluoxetine Hcl) 20 Mg Cap, 20 MG PO PRN for 30 Days, MG 09/15/17 Meclizine Hcl (Meclizine Hcl) 25 Mg Tab, 25 MG PO PRN PRN for DIZZINESS for 30 Days, MG 09/15/17 Ferrous Sulfate (Ferrous Sulfate) 325 Mg Tab, 325 MG PO DAILY for 30 Days, MG 09/15/17 Metoprolol Tartrate (Metoprolol Tartrate) 50 Mg Tab, 50 MG PO BID for 30 Days, MG 09/15/17 Triamterene & Hydrochlorothiaz (Maxzide-25) Tab, 1 TAB PO PRN, #30 TAB 5 Refill s 09/15/17 Lactulose (Lactulose) 10 Gm/15 Ml Dya, 10 GM PO BID 09/15/17 Polyethylene Glycol (Glycolax) 3,350 Nf Pow, 3350 NF PO DAILY, POW 09/15/17 Docusate Sodium (Docusate Sodium) 100 Mg Tab, 100 MG PO DAILYP PRN for FOR CONSTIPATION for 30 Days, MG 09/15/17 Information Source: Patient, Spouse Mode of Arrival: Wheelchair Timing: Weeks Severity: Moderate Vaginal Discharge: None Vaginal Lesions: None Bleeding Quality: Bright Red Onset Of Mass/Bleeding: Unknown Last Consensual [place]: Unknown Control: None Blood Type: Unknown Symptoms of Possible : None Associated Signs and Symptoms: Vaginal Bleeding, Cramping Past Medical History PAST MEDICAL HISTORY: Anemia, Angina, CHF, CKF, COPD, HTN, Kidney Stones Surgical History: Denies all surgeries POLE INSPECTOR History: No Pertinent POLE INSPECTOR History Family History Family History: Reviewed,noncontributory to illness Social History Smoker: Non-Smoker Alcohol: Denies ETOH Use Drugs: Denies Drug Use Lives In: Home Constitutional: reports: fatigue, others (PALE ); denies: chills, diaphoresis, fever, malaise, sweats, weakness EENTM: denies: blurred vision, double vision, ear bleeding, ear discharge, ear drainage, ear pain, ear ringing, eye pain, eye redness, hearing loss, mouth pain, mouth swelling, nasal discharge, nose bleeding, nose congestion, nose pain, photophobia, tearing, throat pain, throat swelling, voice changes, others Respiratory: denies: cough, hemoptysis, orthopnea, SOB at rest, shortness of breath, SOB with excertion, stridor, wheezing, others Cardiovascular: denies: chest pain, dizzy spells, diaphoresis, Dyspnea on exertion, edema, irregular heart beat, left arm pain, lightheadedness, palpitations, PND, syncope, others Gastrointestinal: denies: abdomen distended, abdominal pain, blood streaked bowels, constipated, diarrhea, dysphagia, difficulty swallowing, hematemesis, melena, nausea, poor appetite, poor fluid intake, rectal bleeding, rectal pain, vomiting, others Genitourinary: reports: abnormal vagina bleeding; denies: burning, dyspareunia, dysuria, flank pain, frequency, hematuria, incontinence, pain, , vagina discharge, urgency, others Neurological: reports: dizziness; denies: fainting, headache, left sided numbness, left sided weakness, numbness, paresthesia, pre-existing deficit, right sided numbness, right sided weakness, seizure, speech problems, tingling, tremors, weakness, others Musculoskeletal: denies: back pain, gout, joint pain, joint swelling, muscle pain, muscle stiffness, neck pain, others Integumetry: denies: bruises, change in color, change in hair/nails, dryness, laceration, lesions, lumps, rash, wounds, others Allergic/Immunocompromised: denies: Difficulty Healing, Frequent Infections, Hives, Itching, others Hematologic/Lymphatic: reports: anemia; denies: blood clots, easy bleeding, easy bruising, swollen glands, others Endocrine: denies: excessive hunger, excessive sweating, excessive thirst, excessive urination, flushing, intolerance to cold, intolerance to heat, unexplained weight gain, unexplained weight loss, others Psychiatric: denies: anxiety, bipolar disorder, depression, hopeless, panic disorder, schizophrenia, sleepless, suicidal, others All Other Systems: Reviewed and Negative Physical Exam General Appearance: No Apparent Distress, Obese, Other (PALE ) HEENT: Normal ENT Inspection, PERRL/EOMI, Pharynx Normal, TMs Normal Neck: Full Range of Motion, Non-Tender, Normal, Normal Inspection Respiratory: Chest Non-Tender, Lungs Clear, No Accessory Muscle Use, No Respiratory Distress, Normal Breath Sounds Cardiovascular: No Edema, No JVD, No Murmur, No Gallop, Normal Peripheral Pulses, Regular Rate/Rhythm Breast Exam: Deferred Gastrointestinal: No Organomegaly, Non Tender, No Pulsatile Mass, Normal Bowel Sounds, Soft Genitalia: Deferred Pelvic: Normal External Exam, Tender Uterus, Vaginal Bleeding (MILD VAGINAL BLEEDING, NO BLOOD CLOTS. ) Rectal: Deferred Extremities: No calf tenderness, Normal capillary refill, Normal inspection, Normal range of motion, Non-tender, No pedal edema Musculoskeletal : Apperance: Normal Neurologic: Alert, buggy ladle tender II-XII nml as Tested, No Motor Deficits, Normal Affect, Normal Mood, No Sensory Deficits Cerebellar Function: Normal Reflexes: Normal Skin: Dry, Normal Color, Warm Peripheral Pulses: 2+ carotid (R), 2+ carotid (L) Lymphatic: No Adenopathy Was a procedure done? Was a procedure done?: No Differential Diagnosis (POLE INSPECTOR) Vaginal Bleeding: Dysmenorrhea, UTI, Vaginitis Comments UTERINE FIBROIDS, OVARIAN CYST, SYMPTOMATIC ANEMIA, BLOOD LOSS ANEMIA X-Ray, Labs, Meds, VS Vital Signs Date Time Temp Pulse Resp B/P (MAP) Pulse Ox O2 Delivery O2 Flow Rate FiO2 01/02/25 14:47 61 18 98 Room Air 01/02/25 14:47 99.0 61 18 148/94 (112) 98 99.0 01/02/25 14:17 99.0 61 18 148/94 (112) 98 Lab Test 01/02/25 15:13 01/02/25 14:41 01/02/25 14:39 Range/Units Prothrombin Time 11.2 9.3-11.8 sec Prothrombin Time INR 1.06 0.9-1.15 B-Type Natriuretic Peptide 27.99 0-100 pg/mL Urine Color Yellow Yellow Urine Clarity Clear Clear Urine pH 6.0 5.0-9.0 Urine Specific [place] 1.035 1.001-1.035 Urine Protein 1+ H Negative Urine Ketones Negative Negative Urine Blood 2+ H Negative /uL Urine Nitrite Negative Negative Urine Bilirubin Negative Negative Urine Urobilinogen 3 H Negative mg/dL Urine Leukocyte Esterase Negative Negative /uL Urine RBC 1 0 - 4 /hpf Urine Microscopic WBC 2 0-5 /HPF Urine Squamous Epithelial Cells Few <5 /hpf Urine Calcium Oxalate Crystals Few None Seen Urine Bacteria None seen None Seen /hpf Urine Mucus Few None Seen Urine Glucose Normal Normal mg/dL White Blood Count 6.4 4.4-10.8 10^3/uL Red Blood Count 3.08 L 4.0-5.20 10^6/uL Hemoglobin 7.7 L 12.2-16.2 g/dL Hematocrit 24.2 L 36.0-46.0 % Mean Corpuscular Volume 78.7 L 80.0-100.0 fL Mean Corpuscular Hemoglobin 24.9 L 28.0-32.0 pg Mean Corpuscular Hemoglobin Concent 31.6 L 32.0-36.0 g/dL Red Cell Distribution Width 32.0 H 11.8-14.3 % Platelet Count 84 L 140-450 10^3/uL Mean Platelet Volume 8.2 6.9-10.8 fL Neutrophils (%) (Auto) 59.1 37.0-80.0 % Lymphocytes (%) (Auto) 31.7 10.0-50.0 % Monocytes (%) (Auto) 6.5 0.0-12.0 % Eosinophils (%) (Auto) 1.2 0.0-7.0 % Basophils (%) (Auto) 1.5 0.0-2.0 % Neutrophils # (Auto) 3.8 1.6-8.6 10 ^3/uL Lymphocytes # (Auto) 2.0 0.4-5.4 10 ^3/uL Monocytes # (Auto) 0.4 0-1.3 10 ^3/uL Eosinophils # (Auto) 0.1 0-0.8 10 ^3/uL Basophils # (Auto) 0.1 0-0.2 10 ^3/uL Nucleated Red Blood Cells 0.2 % Platelet Estimate Decreased Clumped Platelets Few Hypochromasia (manual) Slight Anisocytosis (manual) Marked Microcytosis Slight Sodium Level 139 136-145 mmol/L Potassium Level 3.9 3.5-5.1 mmol/L Chloride Level 106 98-107 mmol/L Carbon Dioxide Level 30 20-31 mmol/L Anion Gap 3 L 5-15 Blood Urea Nitrogen 14 9-23 mg/dL Creatinine 1.30 H 0.550-1.02 mg/dL Glomerular Filtration Rate Calc 49 >90 mL/min BUN/Creatinine Ratio 10.8 10.0-20.0 Serum Glucose 87 74-106 mg/dL Calcium Level 9.1 8.7-10.4 mg/dL INDICATION: VAGINAL BLEEDING TECHNIQUE: Multiple real-time grayscale transabdominal sonographic images along with color and duplex Doppler of the uterus and ovaries were obtained. COMPARISON: US PELVIC on DOS: 07/31/24, US PELVIC on DOS: 09/24/23 FINDINGS: The uterus measures 12.03 x 7.42 x 6.33 cm. The endometrial stripe measures 0.17 cm. There is a 4.4 x 3.8 by 2.8 cm intramural mass in the uterus. This is of the largest of multiple intramural. And most likely a fibroid. The right ovary measures 3.3 x 3 x 1.6 cm right ovarian volume is 8.43 cc. There is a 1.9 by 1.25 x 1.53 cm anechoic lesion in the right ovary most likely follicle. The left ovary nonvisualized Subsequent color and duplex Doppler interrogation of the ovaries demonstrated symmetric vascular flow to both ovaries, though this does not exclude the possibility of torsion due to the dual blood supply. IMPRESSION: 1. Multiple intramural fibroids in the uterus largest measures 4.4 x 3.9 by 3.8 cm. ATED BY: PREETI PALACIO Jr., DO DICTATED DATE/TIME: 01/02/25 154 SIGNED BY: PREETI PALACIO Jr., SIGNED DATE/TIME: 01/02/251543 CC: X-Ray, Labs, Meds, VS Comment EXTERNAL MEDICAL RECORDS REVIEWED: [NONE] INDEPENDENT HISTORIANS: [NONE] SOCIAL DETERMINANTS OF HEALTH: [NONE] LABS ORDERED: CBC, BMP, BNP, UA, TYPE AND SCREEN, PT INR REVIEWED AND INTERPRETED RESULTS: HGB 7.7 IMAGING ORDERED: US PELVIS TREATMENTS ORDERED: NS 0.9 NS IV BOLUS AND PRBC 2 UNITS PROCEDURES PERFORMED: NONE CRITICAL CARE TIME: NONE I HAVE DISCUSSED THE PATIENT WITH THE ATTENDING PHYSICIAN DR. BAEZA AND HE AGREES WITH THE PATIENT'S PLAN OF CARE. UPON MY PHYSICAL EXAMINATION, THE PATIENT WAS ILL IN APPEARANCE, BUT WAS NOT IN ANY RESPIRATORY DISTRESS AT THIS TIME. MY DIFFERENTIAL DIAGNOSIS INCLUDES, VAGINAL BLEEDING, DUB, UTERINE FIBROID, OVARIAN CYST, BLOOD LOSS ANEMIA, SYMPTOMATIC ANEMIA, DEHYDRATION, ELECTROLYTE IMBALANCE, UTI, ACUTE CYSTITIS. AN ULTRASOUND WAS DONE FOR THE PATIENT WHICH REVEALED MULTIPLE UTERINE FIBROIDS. LABS WERE DONE FOR THE PATIENT WHICH REVEALED A HEMOGLOBIN OF 7.7 CONSISTENT WITH ANEMIA. DUE TO THE PATIENT'S LABS REVEALING A HEMOGLOBIN OF 7.7, THE PATIENT EXHIBITING SYMPTOMATIC ANEMIA, AND HER MEDICAL HISTORY, I HAVE DETERMINED THE PATIENT NEEDS TO BE ADMITTED FOR FURTHER TREATMENT EVALUATION. THE ON-CALL HOSPITALIST WILL BE CONTACTED FOR ADMISSION OF THIS PATIENT. Images Reviewed?: Images reviewed and evaluated by me Time of 1ST Reevaluation: 16:00 Reevaluation 1ST: Unchanged Patient Education/Counseling: Diagnosis, Treatment Family Education/Counseling: Diagnosis, Treatment Departure 1 Departure Time of Disposition: 16:05 Impression: Primary Impression: Symptomatic anemia Additional Impression: Uterine fibroid Qualified Codes: D25.1 - Intramural leiomyoma of uterus Disposition: ADMITTED INPATIENT Admit to: [facility] Condition: Serious Critical Care Note Critical Care Time?: No Stability Stability form required: No I personally scribed for SHANTEL KU ([email or web address]) on 01/02/25 at 14:57. Electronically submitted by Martin Wills ([email or web address]). I personally scribed for SHANTEL KU ([email or web address]) on 01/02/25 at 15:54. Electronically submitted by Martin Wills ([email or web address]). SHANTEL KU Jan 02, 2025 14:57
[2025-01-02 14:58] LABS: Anion Gap 3 (5-15); Carbon Dioxide 30 mmol/L (20-31)
[2025-01-02 14:59] LABS: Calcium 9.1 mg/dL (8.7-10.4)
[2025-01-02 15:03] LABS: Glucose 87 mg/dL (74-106)
[2025-01-02 15:04] LABS: BUN/Creatinine Ratio 10.8 (10.0-20.0); Blood Urea Nitrogen 14 mg/dL (9-23)
[2025-01-02 15:19] LABS: Anisocytosis Marked; Hypochromia Slight
[2025-01-02 15:20] LABS: Platelet Estimate Decreased
[2025-01-02 15:35] LABS: Urine Bacteria None Seen /hpf (None Seen)
[2025-01-02 15:43] LABS: INR 1.06 (0.9-1.15); Prothrombin Time 11.2 sec (9.3-11.8)
--- NOTE | 2025-01-02 15:46 | DVH ---
INDICATION: VAGINAL BLEEDING TECHNIQUE: Multiple real-time grayscale transabdominal sonographic images along with color and duplex Doppler of the uterus and ovaries were obtained. COMPARISON: US PELVIC on DOS: 07/31/24, US PELVIC on DOS: 09/24/23 FINDINGS: The uterus measures 12.03 x 7.42 x 6.33 cm. The endometrial stripe measures 0.17 cm. There is a 4.4 x 3.8 by 2.8 cm intramural mass in the uterus. This is of the largest of multiple intramura l. And most likely a fibroid. The right ovary measures 3.3 x 3 x 1.6 cm right ovarian volume is 8.43 cc. There is a 1.9 by 1.25 x 1.53 cm anechoic lesion in the right ovary most likely follicle. The left ovary nonvisualized Subsequent color and duplex Doppler interrogation of the ovaries demonstrated symmetric vascular flow to both ovaries, though this does not exclude the possibility of torsion due to the dual blood suppl y. IMPRESSION: 1. Multiple intramural fibroids in the uterus largest measures 4.4 x 3.9 by 3.8 cm.
[2025-01-02 15:51] LABS: Urine Blood 2+ /uL (Negative); Urine Clarity Clear (Clear); Urine Color Yellow (Yellow); Urine Mucus FEW (None Seen); Urine Protein, UAD 1+ (Negative); Urine Specific Gravity 1.035 (1.001-1.035); Urine Squamous Epithelial Cell FEW /hpf (<5); Urine Urobilinogen 3 mg/dL (Negative); Urine WBC 2 /HPF (0-5)
[2025-01-02] MEDS: SODIUM CHLORIDE 0.9% 1,000 ML IV ONE (16:23)
[2025-01-02] MEDS: ACETAMINOPHEN 325 MG TAB PO ONE (17:37)
[2025-01-02] MEDS ORDERED: ALBUTEROL SULF 2.5 MG/0.5ML(0.5%) NEB SOLN NEB PRN (19:45)
[2025-01-02] MEDS ORDERED: ACETAMINOPHEN 325 MG TAB PO PRN (19:45)
[2025-01-02] MEDS ORDERED: DOCUSATE SOD 100 MG CAP PO PRN (19:45)
[2025-01-02] MEDS ORDERED: ONDANSETRON HCL 4 MG/2 ML VIAL IV PRN (19:45)
[2025-01-02] MEDS: SODIUM CHLORIDE 0.9% 1,000 ML IV SCH (19:45)
[2025-01-02] MEDS ORDERED: NITROGLYCERIN 0.4 MG SL TAB SL PRN (20:45)
[2025-01-02] MEDS ORDERED: MORPHINE SULFATE INJ 2 MG/ml SYRG IV PRN (20:45)
--- NOTE | 2025-01-02 20:46 | DVHHP2 ---
History of Present Illness Reason for Visit: Symptomatic anemia History of Present Illness The patient is a 50-year-old female with past medical history of angina, anemia, CHF, COPD, hypertension, kidney stones, and chronic kidney failure who presented to [facility] ED with complaint of vaginal bleeding. Patient reports symptoms progressively worse with dizziness, fatigue, generalized weakness, getting worse today that prompted this visit. Patient reports she had surgery to remove uterine fibroid in 2021, but notes she has been experiencing bleeding since then. Patient was seen and evaluated in the ED, laboratory data shows WBC 6.4, hemoglobin 7.7, hematocrit 24.2, platelets 99656, sodium 139, potassium 3.9, BUN 14, creatinine 1.30, GFR 49, glucose 87, BNP 27.99, blood pressure 140/91, heart rate 62, temperature 98.8 F, O2 saturation 96% on room air. Pelvis ultrasound revealing multiple intramural fibroids in the uterus largest measures 4.4 x 3.9 by 3.8 cm. Patient will receive 2 units of PRBC, please see medication orders section in the computer. On my assessment, patient denies chest pain, no headache, no dizziness, no shortness of breaths, no abdominal pain, no nausea, no vomiting, no fever, no chills. Patient was admitted for further evaluation and medical management. Past Medical History Anemia, Angina, CHF, CKF, COPD, HTN, Kidney Stones Past Surgical History Denies all surgeries Family History Reviewed, noncontributory to the management of this case. Past Social History The patient lives at home, denies smoking, alcohol or illicit drugs abuse. Review of Systems Constitutional: Yes: Weakness, Other (Fatigue, pale.); No: Fever, Chills, Sweats, Malaise Eyes: No: Pain, Vision change, Conjunctivae inflammation, Eyelid inflammation, Other, Redness ENT: No: Ear pain, Ear discharge, Nose pain, Nose discharge, Nose congestion, Mouth pain, Mouth swelling, Throat pain, Throat swelling, Other Respiratory: No: Cough, Dry, Shortness of breath, SOB with excertion, Wheezing, Hemoptysis, Pleuritic Pain, Sputum, Wheezing, Other Cardiovascular: No: Chest Pain, Palpitations, Orthopnea, Paroxysmal Noc. Dyspnea, Edema, Lt Headedness, Other Gastrointestinal: No: Nausea, Vomiting, Abdominal Pain, Diarrhea, Constipation, Melena, Hematochezia, Other Genitourinary: No Dysuria, No Frequency, No Incontinence, No Hematuria, No Retention; Other (abnormal vagina bleeding) Musculoskeletal: No: other, neck pain, shoulder pain, arm pain, back pain, hand pain, leg pain, foot pain Skin: No: Rash, Lesions, Jaundice, Bruising, Other Neurological: Other (Dizziness); No: Weakness, Numbness, Incoordination, Change in speech, Confusion, Seizures Allergies: Coded Allergies: NO KNOWN ALLERGIES (Unverified , 03/15/17) Medications Current Medications Medications Dose Ordered Sig/Deidre Route Start Time Stop Time Status Last Admin Dose Admin Sodium Chloride 1,000 ml @ 60 mls/hr [id number] IV 01/02/25 19:45 Acetaminophen/ Hydrocodone Bitart 1 tab Q4HP PRN PO 01/02/25 19:45 Ondansetron HCl 4 mg Q4HP PRN IV 01/02/25 19:45 Docusate Sodium 100 mg BIDPRN PRN PO 01/02/25 19:45 Acetaminophen 650 mg Q6HP PRN PO 01/02/25 19:45 Hydralazine HCl 10 mg Q6HP PRN IV 01/02/25 19:45 Metoprolol Tartrate 25 mg BID PO 01/02/25 22:00 Albuterol 2.5 mg Q4HPRN PRN NEB 01/02/25 19:45 Exam Vital Signs Vital Signs Date Time Temp Pulse Resp B/P (MAP) Pulse Ox O2 Delivery O2 Flow Rate FiO2 01/02/25 19:50 62 18 142/90 98 0.0 21 01/02/25 19:41 98.0 98.0 01/02/25 14:47 Room Air General Appearance: Alert, Oriented X3, Cooperative, No acute distress HEENT: Atraumatic, PERRLA, EOMI, Mucous membr. moist/pink Respiratory: Clear to auscultation, Normal air movement Cardiovascular: Regular rate, Normal S1, Normal S2, No murmurs Abdominal: Normal bowel sounds, Soft, No tenderness, No hepatospenomegaly, No masses Extremities: No clubbing, No cyanosis, No edema, Normal pulses, No tenderness/swelling Skin: No rashes, No breakdown, No significant lesion Neuro: Normal speech, Normal tone, Sensation intact, Cranial nerves 3-12 NL, Reflexes 2+, Other (Generalized weakness) Psych/Mental Status: Mental status NL, Mood NL Labs/Xrays Labs Test 01/02/25 15:13 01/02/25 14:41 01/02/25 14:39 Range/Units Prothrombin Time 11.2 9.3-11.8 sec Prothrombin Time INR 1.06 0.9-1.15 B-Type Natriuretic Peptide 27.99 0-100 pg/mL Urine Color Yellow Yellow Urine Clarity Clear Clear Urine pH 6.0 5.0-9.0 Urine Specific [place] 1.035 1.001-1.035 Urine Protein 1+ H Negative Urine Ketones Negative Negative Urine Blood 2+ H Negative /uL Urine Nitrite Negative Negative Urine Bilirubin Negative Negative Urine Urobilinogen 3 H Negative mg/dL Urine Leukocyte Esterase Negative Negative /uL Urine RBC 1 0 - 4 /hpf Urine Microscopic WBC 2 0-5 /HPF Urine Squamous Epithelial Cells Few <5 /hpf Urine Calcium Oxalate Crystals Few None Seen Urine Bacteria None seen None Seen /hpf Urine Mucus Few None Seen Urine Glucose Normal Normal mg/dL White Blood Count 6.4 4.4-10.8 10^3/uL Red Blood Count 3.08 L 4.0-5.20 10^6/uL Hemoglobin 7.7 L 12.2-16.2 g/dL Hematocrit 24.2 L 36.0-46.0 % Mean Corpuscular Volume 78.7 L 80.0-100.0 fL Mean Corpuscular Hemoglobin 24.9 L 28.0-32.0 pg Mean Corpuscular Hemoglobin Concent 31.6 L 32.0-36.0 g/dL Red Cell Distribution Width 32.0 H 11.8-14.3 % Platelet Count 84 L 140-450 10^3/uL Mean Platelet Volume 8.2 6.9-10.8 fL Neutrophils (%) (Auto) 59.1 37.0-80.0 % Lymphocytes (%) (Auto) 31.7 10.0-50.0 % Monocytes (%) (Auto) 6.5 0.0-12.0 % Eosinophils (%) (Auto) 1.2 0.0-7.0 % Basophils (%) (Auto) 1.5 0.0-2.0 % Neutrophils # (Auto) 3.8 1.6-8.6 10 ^3/uL Lymphocytes # (Auto) 2.0 0.4-5.4 10 ^3/uL Monocytes # (Auto) 0.4 0-1.3 10 ^3/uL Eosinophils # (Auto) 0.1 0-0.8 10 ^3/uL Basophils # (Auto) 0.1 0-0.2 10 ^3/uL Nucleated Red Blood Cells 0.2 % Platelet Estimate Decreased Clumped Platelets Few Hypochromasia (manual) Slight Anisocytosis (manual) Marked Microcytosis Slight Sodium Level 139 136-145 mmol/L Potassium Level 3.9 3.5-5.1 mmol/L Chloride Level 106 98-107 mmol/L Carbon Dioxide Level 30 20-31 mmol/L Anion Gap 3 L 5-15 Blood Urea Nitrogen 14 9-23 mg/dL Creatinine 1.30 H 0.550-1.02 mg/dL Glomerular Filtration Rate Calc 49 >90 mL/min BUN/Creatinine Ratio 10.8 10.0-20.0 Serum Glucose 87 74-106 mg/dL Calcium Level 9.1 8.7-10.4 mg/dL PATIENT: RIA NOONAN ACCT: [id number] UNIT: [id number] : 05/13/1974 LOC: ER ROOM / BED: / AGE / SEX: 50 / F ADM STATUS: REG ER SERVICE [id number] ORDERING PHYSICIAN: SHANTEL KU PROCEDURE(s): PELUS - PELVIC REASON: VAGINAL BLEEDING ORDER NUMBER(s): [id number], ACCESSION NUMBER(s): [id number] INDICATION: VAGINAL BLEEDING TECHNIQUE: Multiple real-time grayscale transabdominal sonographic images along with color and duplex Doppler of the uterus and ovaries were obtained. COMPARISON: US PELVIC on DOS: 07/31/24, US PELVIC on DOS: 09/24/23 FINDINGS: The uterus measures 12.03 x 7.42 x 6.33 cm. The endometrial stripe measures 0.17 cm. There is a 4.4 x 3.8 by 2.8 cm intramural mass in the uterus. This is of the largest of multiple intramural. And most likely a fibroid. The right ovary measures 3.3 x 3 x 1.6 cm right ovarian volume is 8.43 cc. There is a 1.9 by 1.25 x 1.53 cm anechoic lesion in the right ovary most likely follicle. The left ovary nonvisualized Subsequent color and duplex Doppler interrogation of the ovaries demonstrated symmetric vascular flow to both ovaries, though this does not exclude the possibility of torsion due to the dual blood supply. IMPRESSION: 1. Multiple intramural fibroids in the uterus largest measures 4.4 x 3.9 by 3.8 cm. Assessment/Plan Assessment/Plan Symptomatic anemia Uterine fibroid Intramural leiomyoma of uterus Generalized weakness Plan 1. Admit to telemetry unit 2. Breathing treatment 3. Pain control management 4. Management of fluids and electrolytes 5. Consultation for OBGYN/hospitalist 6. Diagnostic tests pelvis ultrasound 7. DVT prophylaxis-on SCDs 8. We will receive 2 units of PRBC, Repeat labs CBC, CMP in a.m. 9. Continue with current medical management 10. Treatment plan discussed with patient and RN. Patient verbalized understanding. Plan discussed with: Patient, Other (RN) My Orders Orders - DANNY ALEJANDRA DNP Procedure Category Date Status Time * Mcat Instructor Consultation CONS 01/02/25 Transmitted 19:34 Allergies EDWIN 01/02/25 In Process 19:34 Code Status CODE 01/02/25 Transmitted 19:34 Sodium Chloride 0.9% PHA 01/02/25 In Process 19:45 Oxygen Per Hour RT 01/02/25 Transmitted 19:34 Hydrocodone-Acet PHA 01/02/25 In Process 5/325mg Tab ([place] 19:45 Ondansetron Hcl PHA 01/02/25 In Process (Zofran) 19:45 Docusate Sodium PHA 01/02/25 In Process Capsule ([place] 19:45 Complete Blood Count LAB 01/03/25 Verified 04:00 Comprehensive LAB 01/03/25 Verified Metabolic Panel 04:00 Cardiac DIET 01/03/25 Transmitted Diet-2gna,Lofat,Lochol Breakfast Condition: Serious EDWIN 01/02/25 In Process 19:34 Acetaminophen Tablet PHA 01/02/25 In Process (Tylenol Tablet) 19:45 Bedrest With Bathroom EDWIN 01/02/25 In Process Privileg 19:34 Sequential EDWIN 01/02/25 In Process Compression Device Hydralazine Injection PHA 01/02/25 In Process (Apresoline Inject 19:45 Metoprolol Tartrate PHA 01/02/25 In Process Tablet (Lopressor Ta 22:00 Albuterol Medneb PHA 01/02/25 In Process (Ventolin Medneb) 19:45 Problem List: (1) Symptomatic anemia (2) Uterine fibroid (3) Intramural leiomyoma of uterus (4) Generalized weakness Date of Service: Jan 02, 2025 Billing Provider: DANNY ALEJANDRA DNP Common Visit Codes: 66531-[id number] INP/OBS CARE (HIGH) DANNY ALEJANDRA DNP Jan 02, 2025 20:46
[2025-01-02] MEDS: METOPROLOL TARTRATE 25 MG TAB PO SCH (22:00)
[2025-01-02] MEDS: hydrALAZINE HCL 20 MG/ML VL IV PRN (22:13)
[2025-01-02] MEDS: HYDROcodone-ACET 5/325MG TAB PO PRN (23:28)
[2025-01-03] VITALS (11 sets, daily range): BP systolic 125–144; BP diastolic 84–96; PULSE 48–59; RESP 12–19; TEMP 97.6–99.2; O2SAT 93–100
[2025-01-03 06:48] LABS: Basophils # (auto) 0.1 10 ^3/uL (0-0.2); Eosinophils # (auto) 0 10 ^3/uL (0-0.8); Hemoglobin 9.8 g/dL (12.2-16.2); Monocytes # (auto) 0.6 10 ^3/uL (0-1.3); Neutrophils # (auto) 6.2 10 ^3/uL (1.6-8.6)
[2025-01-03 06:55] LABS: Basophils % (auto) 0.7 % (0.0-2.0); Eosinophils % (auto) 0.4 % (0.0-7.0); Hematocrit 30.5 % (36.0-46.0); Lymphocytes # (auto) 0.4 10 ^3/uL (0.4-5.4); Lymphocytes % (auto) 5.9 % (10.0-50.0); Mean Corpuscular Hemoglobin 25.9 pg (28.0-32.0); Mean Corpuscular Volume 80.8 fL (80.0-100.0); Monocytes % (auto) 7.6 % (0.0-12.0); Neutrophils % (auto) 85.4 % (37.0-80.0); Nucleated Red Blood Cells % 0.1 %; Platelet Count (auto) 152 10^3/uL (140-450); Red Blood Cells 3.78 10^6/uL (4.0-5.20); Red Cell Distribution Width 30.4 % (11.8-14.3); White Blood Cell 7.3 10^3/uL (4.4-10.8)
[2025-01-03 06:56] LABS: Alanine Aminotransferase 17 U/L (7-40); Alkaline Phosphatase 56 U/L (46-116); Anion Gap 4 (5-15); BUN/Creatinine Ratio 12.3 (10.0-20.0); Blood Urea Nitrogen 21 mg/dL (9-23); Carbon Dioxide 30 mmol/L (20-31); Chloride 104 mmol/L (98-107); Glucose 105 mg/dL (74-106); Potassium 3.8 mmol/L (3.5-5.1); Sodium 138 mmol/L (136-145)
[2025-01-03 07:06] LABS: Aspartate Aminotransferase 57 U/L (13-40); Bilirubin, Total 2.4 mg/dL (0.2-1.0); Total Protein 9.2 g/dL (5.7-8.2)
--- NOTE | 2025-01-03 10:26 | DVHINCON2 ---
Date of service: Jan 03, 2025 Referring Physician Hospitalist Reason for Consultation Patient has symptomatic fibroid uterus with severe anemia requiring 2 units packed RBCs on this admission. She receives serial blood transfusions every 6- 12 months secondary to abnormal heavy uterine bleeding. She is status post 2 u nits this admission and the bleeding has slowed down considerably. History of Present Illness History Source: Patient Exam Limitations: Other (Somewhat difficult to do a thorough pelvic exam in the hospital bed without stirrups and/or lights. Bimanual shows enlarged uterus no cervical motion tenderness no abnormal discharge. Mild to moderate venous blood in the vagina.) Home Meds Active Scripts Potassium Chloride (Klor-Con 8) 8 Meq Tab, 8 MEQ PO DAILY for 60 Days, #60 TAB Prov:ALYSSA MERCER NP 09/27/23 Furosemide (Lasix) 20 Mg Tb, 1 TAB PO DAILY, #90 TAB 1 Refill Prov:ALYSSA MERCER NP 09/27/23 Albuterol Sulfate (VENTOLIN MDI) 90 Mcg Ih, 90 MCG IN Q4HP PRN for 30 Days, #1 INH 1 Refill Prov:ALYSSA MERCER MASK INSPECTOR 09/27/23 Prednisone (Prednisone) 20 Mg Tab, 20 MG PO DAILY for 5 Days, #5 MG Prov:ALYSSA MERCER NP 09/27/23 Doxycycline (Monohydrate) (Doxycycline) 100 Mg Cap, 1 MG PO BID for 7 Days, #14 CAP Prov:ALYSSA MERCER NP 09/27/23 Reported Medications Allopurinol (Allopurinol) 100 Mg Tab, 100 MG PO DAILY for 30 Days, MG 09/15/17 Fluoxetine Hcl (Fluoxetine Hcl) 20 Mg Cap, 20 MG PO PRN for 30 Days, MG 09/15/17 Meclizine Hcl (Meclizine Hcl) 25 Mg Tab, 25 MG PO PRN PRN for DIZZINESS for 30 Days, MG 09/15/17 Ferrous Sulfate (Ferrous Sulfate) 325 Mg Tab, 325 MG PO DAILY for 30 Days, MG 09/15/17 Metoprolol Tartrate (Metoprolol Tartrate) 50 Mg Tab, 50 MG PO BID for 30 Days, MG 09/15/17 Triamterene & Hydrochlorothiaz (Maxzide-25) Tab, 1 TAB PO PRN, #30 TAB 5 Refills 11/18/17 Lactulose (Lactulose) 10 Gm/15 Ml Day, 10 GM PO BID 09/15/17 Polyethylene Glycol (Glycolax) 3,350 Nf Pow, 3350 NF PO DAILY, POW 09/15/17 Docusate Sodium (Docusate Sodium) 100 Mg Tab, 100 MG PO DAILYP PRN for FOR CONSTIPATION for 30 Days, MG 09/15/17 Chief Complaint of Abdominal/F: Other (Abdomen is soft) Past Medical History Cardiac: HTN Central Nervous System: Other (History of vertigo) Renal/: No pertinent Hx (s stated that she had stage II renal failure had been a candidate for dialysis but has not required this time.), Other (IBS) Endocrine: NIDDM (Questionable diabetes as she seems to think her A1c was 6 she is not on any oral or IV insulin medication only diet.) Past Surgical History: Other (Patient had scheduled a hysterectomy and [place] and apparently she had extensive abdominopelvic adhesions involving bowel which was complicated by colon resection colostomy which was subsequently taken down and she was counseled to never have any pelvic abdominal surgery unless absolutely no other options. She had appendectomy previously as well. They were not able to perform her hysterectomy secondary to the density of the adhesions and did myomectomy.) Family History: No pertinent Hx Patient Family History: Patient reports no known family medical history. Smoker: Other (Occasional vape socially otherwise no marijuana or other drugs or alcohol.) Review of Systems Gastrointestinal: Other (IBS symptoms) Genitourinary: No symptom reported Musculoskeletal: No symptom reported Skin: No symptom reported Psychiatric: No symptom reported Endocrine: No symptom reported Hemotologic/Lymphatic: Anemia H&P Exam Vital Signs Vital Signs Date Time Temp Pulse Resp B/P (MAP) Pulse Ox O2 Delivery O2 Flow Rate FiO2 01/03/25 09:00 98.1 51 12 138/93 (108) 100 98.1 01/03/25 07:28 Room Air 01/03/25 07:28 0 21 General Appeara: Well developed, Well nourished, Normal Appearance Head Exam: Normal inspection Neck Exam: Normal inspection, Non-tender, Normal alignment Pulmonary/Respiratory: Normal inspection, Normal breath sounds, Chest non- tender, Lungs clear Cardiovascular/Chest: Normal inspection, Regular rate, Normal Rhythm Abdominal Exam: Normal bowel sounds, Soft, No tenderness, No hepatospenomegaly, No masses Pelvic Exam: External exam normal, Tender w/ cervical motion, Tender uterus, Other (Enlarged irregular uterus suggestive of fibroids despite having previous myomectomy.) Shoulder Exam: Normal inspection, Non-tender, Normal ROM Legs: bilateral leg non-tender, bilateral leg normal inspection, bilateral leg normal range of motion, bilateral leg no evidence of injury [employer] EXEC[employer]IVE Exam: Normal hearing Deep Tendon Ref: All intact Neuro/Mental St: Alert, Oriented Appearance: Appropriate appearance Eye contact/ Speech: Cooperative Thoughts/Psych: Normal thought pattern Skin Exam: Normal inspection Lymphatic: Normal inspection Wounds None Labs/Xrays Labs Test 01/03/25 06:02 01/02/25 15:13 01/02/25 14:41 01/02/25 14:39 Range/Units White Blood Count 7.3 4.4-10.8 10^3/uL Red Blood Count 3.78 L 4.0-5.20 10^6/uL Hemoglobin 9.8 #L 12.2-16.2 g/dL Hematocrit 30.5 #L 36.0-46.0 % Mean Corpuscular Volume 80.8 80.0-100.0 fL Mean Corpuscular Hemoglobin 25.9 L 28.0-32.0 pg Mean Corpuscular Hemoglobin Concent 32.0 32.0-36.0 g/dL Red Cell Distribution Width 30.4 H 11.8-14.3 % Platelet Count 152 140-450 10^3/uL Mean Platelet Volume 8.7 6.9-10.8 fL Neutrophils (%) (Auto) 85.4 H 37.0-80.0 % Lymphocytes (%) (Auto) 5.9 L 10.0-50.0 % Monocytes (%) (Auto) 7.6 0.0-12.0 % Eosinophils (%) (Auto) 0.4 0.0-7.0 % Basophils (%) (Auto) 0.7 0.0-2.0 % Neutrophils # (Auto) 6.2 1.6-8.6 10 ^3/uL Lymphocytes # (Auto) 0.4 0.4-5.4 10 ^3/uL Monocytes # (Auto) 0.6 0-1.3 10 ^3/uL Eosinophils # (Auto) 0 0-0.8 10 ^3/uL Basophils # (Auto) 0.1 0-0.2 10 ^3/uL Nucleated Red Blood Cells 0.1 % Sodium Level 138 136-145 mmol/L Potassium Level 3.8 3.5-5.1 mmol/L Chloride Level 104 98-107 mmol/L Carbon Dioxide Level 30 20-31 mmol/L Anion Gap 4 L 5-15 Blood Urea Nitrogen 21 9-23 mg/dL Creatinine 1.71 #H 0.550-1.02 mg/dL Glomerular Filtration Rate Calc 36 >90 mL/min BUN/Creatinine Ratio 12.3 10.0-20.0 Serum Glucose 105 74-106 mg/dL Calcium Level 9.0 8.7-10.4 mg/dL Total Bilirubin 2.4 H 0.2-1.0 mg/dL Aspartate Amino Transferase (AST) 57 H 13-40 U/L Alanine Aminotransferase (ALT) 17 7-40 U/L Alkaline Phosphatase 56 46-116 U/L Total Protein 9.2 H 5.7-8.2 g/dL Albumin 4.0 3.2-4.8 g/dL Prothrombin Time 11.2 9.3-11.8 sec Prothrombin Time INR 1.06 0.9-1.15 B-Type Natriuretic Peptide 27.99 0-100 pg/mL Urine Color Yellow Yellow Urine Clarity Clear Clear Urine pH 6.0 5.0-9.0 Urine Specific [place] 1.035 1.001-1.035 Urine Protein 1+ H Negative Urine Ketones Negative Negative Urine Blood 2+ H Negative /uL Urine Nitrite Negative Negative Urine Bilirubin Negative Negative Urine Urobilinogen 3 H Negative mg/dL Urine Leukocyte Esterase Negative Negative /uL Urine RBC 1 0 - 4 /hpf Urine Microscopic WBC 2 0-5 /HPF Urine Squamous Epithelial Cells Few <5 /hpf Urine Calcium Oxalate Crystals Few None Seen Urine Bacteria None seen None Seen /hpf Urine Mucus Few None Seen Urine Glucose Normal Normal mg/dL Platelet Estimate Decreased Clumped Platelets Few Hypochromasia (manual) Slight Anisocytosis (manual) Marked Microcytosis Slight Assessment/Plan Primary Diagnosis Severe anemia active uterine bleeding, status post transfusion, fibroid uterus, Plan discussed with: Patient (Consent had a long discussion with the patient given her history of colostomy and colostomy takedown subsequent to her my omectomy which was bed aborted hysterectomy recommended uterine artery occlusion and or endometrial ablation hysteroscopy D&C. Patient had previously been counseled to have 1 of those 2 options performed and she pulled out a paper which appeared to be from [place] which had that written on it. We discussed with her on the voice loud speaker on her phone risks benefits complications and alternatives all questions answered and encouraged this discussion was not limited to the risk of decreased fertility infection bleeding anesthesia acute chronic pain damage to adjacent organs transfusion hep B HIV transfusion reaction my stroke we also discussed the general risks of [place] DVT PE she stroke . Patient understands she did eat this morning so her procedure would be delayed which appears to be stable to wait for her GI products to pass as we would like to avoid aspiration possible. All questions answered encouraged patient adamantly wants to proceed with hysteroscopy D and C ablation. [employer] was called [facility] she was placed on the schedule to be NPO midnight and the procedure scheduled for 8:00 a.m..), Other (Thank you for the opportunity to consult on your patient if the aforementioned plan is agreeable we will proceed as documented with fractional D&C hysteroscopy endometrial ablation.Time spent with the patient is 60 minutes 30 minutes [id number] 30 minutes reviewing labs and studies.) MARQUEZ VILLATORO DO Jan 03, 2025 10:26
--- NOTE | 2025-01-03 10:27 | DVHOP2 ---
Operative Report - 2 Report Details Date: 01/03/25 Preop Diagnosis: Fibroid uterus anemia active bleeding Postop Diagnosis: See other operative report Surgeon: Eugenio Villatoro Anesthesiologist: Chandra TOBIAS Anesthesia: Mac Consent: The patient was informed of the risks and benefits of the procedure. These include but are not limited to complications of anesthesia, postoperative infection, incomplete relief of symptoms, recurrence of symptoms, damage to blood vessels, nerves and tendons, deep venous thrombosis, pulmonary embolism and possible need for repeat surgery in the future. Name of Procedure Performed Hysteroscopy fractional D&C endometrial ablation Procedure Details Procedure Details: See other operative port Disposition Home MARQUEZ VILLATORO DO Jan 03, 2025 10:27
--- NOTE | 2025-01-03 13:14 | DVHPN2 ---
Subjective The patient is seen and examined at bedside. No complaint today Reviewed: Care Plan, H&P, Labs, Medications, Previous Orders, Radiology Changes from previous H/P or p: No Changes Eyes: No Pain, No Vision change, No Conjunctivae inflammation, No Eyelid inflammation, No Other, No Redness ENT: No Ear pain, No Ear discharge, No Nose pain, No Nose discharge, No Nose congestion, No Mouth pain, No Mouth swelling, No Throat pain, No Throat swelling, No Other Cardiovascular: No Chest Pain, No Palpitations, No Orthopnea, No Paroxysmal Noc. Dyspnea, No Edema, No Lt Headedness, No Other Respiratory: No Cough, No Dry, No Shortness of breath, No SOB with excertion, No Wheezing, No Hemoptysis, No Pleuritic Pain, No Sputum, No Other Gastrointestinal: No Nausea, No Vomiting, No Abdominal Pain, No Diarrhea, No Constipation, No Melena, No Hematochezia, No Other Genitourinary: No Dysuria, No Frequency, No Incontinence, No Hematuria, No Retention; Other (abnormal vagina bleeding) Musculoskeletal: No other, No neck pain, No shoulder pain, No arm pain, No back pain, No hand pain, No leg pain, No foot pain Skin: No Rash, No Lesions, No Jaundice, No Bruising, No Other Objective Vitals Vital Signs Date Time Temp Pulse Resp B/P (MAP) Pulse Ox O2 Delivery O2 Flow Rate FiO2 01/03/25 10:00 100 Room Air 0.0 01/03/25 10:00 51 01/03/25 10:00 21 01/03/25 09:00 98.1 12 138/93 (108) 98.1 Intake/Output Intake and Output 01/03/25 07:00 Intake Total 1400 ml Balance 1400 ml Intake Oral 200 ml Blood Product 1200 ml # Voids 1 # Sanitary Pads 2 General Appearance: Alert, Oriented X3, Cooperative, No acute distress HEENT: Atraumatic, PERRLA, EOMI, Mucous membr. moist/pink Neck: Supple Lungs: Clear to auscultation, Normal air movement Cardiovascular: Regular rate, Normal S1, Normal S2, No murmurs, Gallops, Rubs Abdomen: Normal bowel sounds, Soft, No tenderness Neuro: Cranial nerves 3-12 NL Psych/Mental Status: Mental status NL Medications Current Medications Medications Dose Ordered Sig/Deidre Route Start Time Stop Time Status Last Admin Dose Admin Sodium Chloride 1,000 ml @ 60 mls/hr [id number] IV 01/02/25 19:45 Acetaminophen/ Hydrocodone Bitart 1 tab Q4HP PRN PO 01/02/25 19:45 01/02/25 23:28 1 TAB Ondansetron HCl 4 mg Q4HP PRN IV 01/02/25 19:45 Docusate Sodium 100 mg BIDPRN PRN PO 01/02/25 19:45 Acetaminophen 650 mg Q6HP PRN PO 01/02/25 19:45 Hydralazine HCl 10 mg Q6HP PRN IV 01/02/25 19:45 01/02/25 22:13 10 MG Metoprolol Tartrate 25 mg BID PO 01/02/25 22:00 Albuterol 2.5 mg Q4HPRN PRN NEB 01/02/25 19:45 Nitroglycerin 0.4 mg Q5MINP PRN SL 01/02/25 20:45 Morphine Sulfate 2 mg Q30M PRN IV 01/02/25 20:45 Laboratory Results Laboratory Tests 01/03/25 06:02 Chemistry Test 01/02/25 14:39 01/03/25 06:02 Calcium Level 9.1 mg/dL (8.7-10.4) 9.0 mg/dL (8.7-10.4) Albumin 4.0 g/dL (3.2-4.8) Total Protein 9.2 g/dL (5.7-8.2) H Coagulation Test 01/02/25 15:13 Prothrombin Time 11.2 sec (9.3-11.8) Prothrombin Time INR 1.06 (0.9-1.15) Cardiac Markers Test 01/02/25 15:13 B-Type Natriuretic Peptide 27.99 pg/mL (0-100) LFT Test 01/03/25 06:02 Alanine Aminotransferase (ALT) 17 U/L (7-40) Alkaline Phosphatase 56 U/L (46-116) Aspartate Amino Transferase (AST) 57 U/L (13-40) H Total Bilirubin 2.4 mg/dL (0.2-1.0) H Urinalysis Test 01/02/25 14:41 Urine Color Yellow (Yellow) Urine Clarity Clear (Clear) Urine pH 6.0 (5.0-9.0) Urine Specific [place] 1.035 (1.001-1.035) Urine Protein 1+ (Negative) H Urine Ketones Negative (Negative) Urine Blood 2+ /uL (Negative) H Urine Nitrite Negative (Negative) Urine Bilirubin Negative (Negative) Urine Urobilinogen 3 mg/dL (Negative) H Urine Leukocyte Esterase Negative /uL (Negative) Urine RBC 1 /hpf (0 - 4) Urine Microscopic WBC 2 /HPF (0-5) Urine Squamous Epithelial Cells Few /hpf (<5) Urine Calcium Oxalate Crystals Few (None Seen) Urine Bacteria None seen /hpf (None Seen) Urine Mucus Few (None Seen) Urine Glucose Normal mg/dL (Normal) Labs and/or images reviewed: Labs reviewed by me Assessment/Plan Assessment/Plan Severe symptomatic anemia due to active uterine bleeding, status post transfusion fibroid uterus Hypertension Continuing current management. Continuing blood transfusion if hemoglobin less than seven. Patient is status post hysteroscopy fractional D&C endometrial ablation Waiting for another procedure will be done tomorrow by Dr. Nair. Plan discussed with: Patient Date of Service: Jan 03, 2025 Billing Provider: KARAN MONTGOMERY MD Common Visit Codes: [id number] INP/OBS CARE(HIGH) KARAN MONTGOMERY MD Jan 03, 2025 13:14
--- NOTE | 2025-01-03 15:08 | DVH ---
INDICATION: procedure tomorrow, pain TECHNIQUE: Frontal view of the chest. COMPARISON: XY CHEST XRAY 1 VIEW on DOS: 07/30/24, XY CHEST XRAY 1 VIEW on DOS: 09/25/23, XY CHEST POR TABLE on DOS: 09/24/23 FINDINGS: . The heart and mediastinal contours are grossly unremarkable. There is no evidence of pleural disea se. The lungs are clear. The bony structures of the chest are intact without fracture. IMPRESSION: 1. No evidence of acute disease.
[2025-01-04] VITALS (8 sets, daily range): BP systolic 120–148; BP diastolic 68–90; PULSE 50–78; RESP 15–16; TEMP 36.8; O2SAT 92–100
[2025-01-04] MEDS ORDERED: ceFAZolin 2 GM/D5W100ml 100 ML IV ONE (06:46)
[2025-01-04] MEDS ORDERED: PROPOFOL 10 MG/ML 20 ML IV ONE (06:54)
[2025-01-04] MEDS ORDERED: DexAMETHasone SOD PHOS 10MG/1ML VIAL INJ ONE (06:54)
[2025-01-04] MEDS ORDERED: LIDOCAINE 1% INJ PF 5ML AMP ONE (06:54)
[2025-01-04] MEDS ORDERED: ONDANSETRON HCL 4 MG/2 ML VIAL ONE (06:54)
[2025-01-04] MEDS ORDERED: GLYCOPYRROLATE 0.2 MG/ML 1ML VIAL ONE (06:54)
[2025-01-04] MEDS ORDERED: KETOROLAC TROMETH 30 MG/ML 1ML VIAL ONE (06:54)
[2025-01-04] MEDS ORDERED: ePHEDrine SULFATE 50 MG/ML AMP ONE (07:27)
[2025-01-04] MEDS ORDERED: HYDROmorphone HCL 2 MG/ML VL/or syr IV PRN (09:15)
[2025-01-04] MEDS ORDERED: FLUMAZENIL 0.1 MG/ML INJ 10ML MDV IV PRN (09:15)
[2025-01-04] MEDS ORDERED: fentaNYL CITRATE 100 MCG/2 ML VL IV PRN (09:15)
[2025-01-04] MEDS ORDERED: ePHEDrine SULFATE 50 MG/ML AMP IV PRN (09:15)
[2025-01-04] MEDS ORDERED: NALOXONE HCL 0.4 MG/ML VIAL IV PRN (09:15)
[2025-01-04] MEDS ORDERED: ONDANSETRON HCL 4 MG/2 ML VIAL IV PRN (09:15)
[2025-01-04] MEDS ORDERED: hydrALAZINE HCL 20 MG/ML VL IV PRN (09:15)
--- NOTE | 2025-01-04 09:21 | DVHOP2 ---
Operative Report - 2 Report Details Date: 01/04/25 Preop Diagnosis: Anemia, active uterine bleeding, fibroid uterus Postop Diagnosis: Same dyssynchronous endometrium no polyps or fibroids in the endometrial lining. Surgeon: Eugenio Villatoro Intake Assessor: None Anesthesiologist: MICHELINE Jara MAC anesthesia Anesthesia: General Consent: The patient was informed of the risks and benefits of the procedure. These include but are not limited to complications of anesthesia, postoperative infection, incomplete relief of symptoms, recurrence of symptoms, damage to blood vessels, nerves and tendons, deep venous thrombosis, pulmonary embolism and possible need for repeat surgery in the future. Estimated Blood Loss: trace Fluids: See anesthesia log Findings: Dyssynchronous endometrium only sounded 7 cm Indications for Surgery: Severe anemia active bleeding fibroid uterus requiring 2 units packed RBCs transfuse preoperatively Name of Procedure Performed Hysteroscopy fractional D&C endometrial ablation Procedure Details Procedure Details: Patient taken the operating placed in supine position mac anesthesia was performed without difficulty shoes then placed an Allis stroke prep drape sterile fashion we had a speculum placed posteriorly right angle Venita retractor use anteriorly cervix identified. Grossly normal as well as all vaginal anatomy. At this point she was sounded to 7 cm we serially dilated her to 23 [place]. ECC EMC was performed hysteroscopy showed a dyssynchronous endometrium. NovaSure endometrial ablation device was placed and she underwent endometrial ablation. The NovaSure device did shut down for its complete cycle but we restarted inch we were able to complete 2 partial cycles with an a subsequent hysteroscopy showed do the ablation was successful. Hysteroscopic fluid in is equal to the volume hysteroscopic fluid out 50 cc then 50 cc out. Specimen: ECC EMC Condition Good Disposition PACU then floor Med surge; patient stable with regards to polisher eyeglass frames for discharge MARQUEZ VILLATORO DO Jan 04, 2025 09:21
--- NOTE | 2025-01-04 12:57 | DVHPN2 ---
Eyes: No Pain, No Vision change, No Conjunctivae inflammation, No Eyelid inflammation, No Other, No Redness ENT: No Ear pain, No Ear discharge, No Nose pain, No Nose discharge, No Nose congestion, No Mouth pain, No Mouth swelling, No Throat pain, No Throat swelling, No Other Cardiovascular: No Chest Pain, No Palpitations, No Orthopnea, No Paroxysmal Noc. Dyspnea, No Edema, No Lt Headedness, No Other Respiratory: No Cough, No Dry, No Shortness of breath, No SOB with excertion, No Wheezing, No Hemoptysis, No Pleuritic Pain, No Sputum, No Other Gastrointestinal: No Nausea, No Vomiting, No Abdominal Pain, No Diarrhea, No Constipation, No Melena, No Hematochezia, No Other Genitourinary: No Dysuria, No Frequency, No Incontinence, No Hematuria, No Retention; Other (abnormal vagina bleeding) Musculoskeletal: No other, No neck pain, No shoulder pain, No arm pain, No back pain, No hand pain, No leg pain, No foot pain Skin: No Rash, No Lesions, No Jaundice, No Bruising, No Other Objective Vitals Vital Signs Date Time Temp Pulse Resp B/P (MAP) Pulse Ox O2 Delivery O2 Flow Rate FiO2 01/04/25 12:49 98.2 66 16 144/90 (108) 97 98.2 01/04/25 10:00 Room Air* 0 21 Intake/Output Intake and Output 01/04/25 07:00 Intake Total 698 ml Balance 698 ml Intake Oral 698 ml # Voids 3 # Bowel Movements 1 Medications Current Medications Medications Dose Ordered Sig/Deidre Route Start Time Stop Time Status Last Admin Dose Admin Sodium Chloride 1,000 ml @ 60 mls/hr [id number] IV 01/02/25 19:45 Acetaminophen/ Hydrocodone Bitart 1 tab Q4HP PRN PO 01/02/25 19:45 01/04/25 10:19 1 TAB Ondansetron HCl 4 mg Q4HP PRN IV 01/02/25 19:45 Docusate Sodium 100 mg BIDPRN PRN PO 01/02/25 19:45 Acetaminophen 650 mg Q6HP PRN PO 01/02/25 19:45 Hydralazine HCl 10 mg Q6HP PRN IV 01/02/25 19:45 01/02/25 22:13 10 MG Metoprolol Tartrate 25 mg BID PO 01/02/25 22:00 Albuterol 2.5 mg Q4HPRN PRN NEB 01/02/25 19:45 Cancel Nitroglycerin 0.4 mg Q5MINP PRN SL 01/02/25 20:45 Morphine Sulfate 2 mg Q30M PRN IV 01/02/25 20:45 Laboratory Results Laboratory Tests 01/03/25 06:02 Urinalysis Test 01/02/25 14:41 Urine Color Yellow (Yellow) Urine Clarity Clear (Clear) Urine pH 6.0 (5.0-9.0) Urine Specific [place] 1.035 (1.001-1.035) Urine Protein 1+ (Negative) H Urine Ketones Negative (Negative) Urine Blood 2+ /uL (Negative) H Urine Nitrite Negative (Negative) Urine Bilirubin Negative (Negative) Urine Urobilinogen 3 mg/dL (Negative) H Urine Leukocyte Esterase Negative /uL (Negative) Urine RBC 1 /hpf (0 - 4) Urine Microscopic WBC 2 /HPF (0-5) Urine Squamous Epithelial Cells Few /hpf (<5) Urine Calcium Oxalate Crystals Few (None Seen) Urine Bacteria None seen /hpf (None Seen) Urine Mucus Few (None Seen) Urine Glucose Normal mg/dL (Normal) Assessment/Plan My Orders Orders - KARAN MONTGOMERY MD Procedure Category Date Status Time Order Routine Aptt EDWIN 01/03/25 In Process 13:58 Chest Portable XY 01/03/25 Resulted 14:20 KARAN MONTGOMERY MD Jan 04, 2025 12:57
--- NOTE | 2025-01-04 14:12 | DVHDS2 ---
Discharge Summary Date of Admission Jan 02, 2025 at 20:45 Date of Discharge: Jan 04, 2025 Admitting Diagnosis Symptomatic anemia due to abnormal uterine bleed Fibroid uterine Hypertension Labs/Diagnostic Data: Laboratory Results Test 01/03/25 06:02 01/02/25 15:13 01/02/25 14:41 01/02/25 14:39 White Blood Count 7.3 10^3/uL (4.4-10.8) Red Blood Count 3.78 10^6/uL (4.0-5.20) Hemoglobin 9.8 g/dL (12.2-16.2) Hematocrit 30.5 % (36.0-46.0) Mean Corpuscular Volume 80.8 fL (80.0-100.0) Mean Corpuscular Hemoglobin 25.9 pg (28.0-32.0) Mean Corpuscular Hemoglobin Concent 32.0 g/dL (32.0-36.0) Red Cell Distribution Width 30.4 % (11.8-14.3) Platelet Count 152 10^3/uL (140-450) Mean Platelet Volume 8.7 fL (6.9-10.8) Neutrophils (%) (Auto) 85.4 % (37.0-80.0) Lymphocytes (%) (Auto) 5.9 % (10.0-50.0) Monocytes (%) (Auto) 7.6 % (0.0-12.0) Eosinophils (%) (Auto) 0.4 % (0.0-7.0) Basophils (%) (Auto) 0.7 % (0.0-2.0) Neutrophils # (Auto) 6.2 10 ^3/uL (1.6-8.6) Lymphocytes # (Auto) 0.4 10 ^3/uL (0.4-5.4) Monocytes # (Auto) 0.6 10 ^3/uL (0-1.3) Eosinophils # (Auto) 0 10 ^3/uL (0-0.8) Basophils # (Auto) 0.1 10 ^3/uL (0-0.2) Nucleated Red Blood Cells 0.1 % Sodium Level 138 mmol/L (136-145) Potassium Level 3.8 mmol/L (3.5-5.1) Chloride Level 104 mmol/L (98-107) Carbon Dioxide Level 30 mmol/L (20-31) Anion Gap 4 (5-15) Blood Urea Nitrogen 21 mg/dL (9-23) Creatinine 1.71 mg/dL (0.550-1.02) Glomerular Filtration Rate Calc 36 mL/min (>90) BUN/Creatinine Ratio 12.3 (10.0-20.0) Serum Glucose 105 mg/dL (74-106) Calcium Level 9.0 mg/dL (8.7-10.4) Total Bilirubin 2.4 mg/dL (0.2-1.0) Aspartate Amino Transferase (AST) 57 U/L (13-40) Alanine Aminotransferase (ALT) 17 U/L (7-40) Alkaline Phosphatase 56 U/L (46-116) Total Protein 9.2 g/dL (5.7-8.2) Albumin 4.0 g/dL (3.2-4.8) Prothrombin Time 11.2 sec (9.3-11.8) Prothrombin Time INR 1.06 (0.9-1.15) B-Type Natriuretic Peptide 27.99 pg/mL (0-100) Urine Color Yellow (Yellow) Urine Clarity Clear (Clear) Urine pH 6.0 (5.0-9.0) Urine Specific [place] 1.035 (1.001-1.035) Urine Protein 1+ (Negative) Urine Ketones Negative (Negative) Urine Blood 2+ /uL (Negative) Urine Nitrite Negative (Negative) Urine Bilirubin Negative (Negative) Urine Urobilinogen 3 mg/dL (Negative) Urine Leukocyte Esterase Negative /uL (Negative) Urine RBC 1 /hpf (0 - 4) Urine Microscopic WBC 2 /HPF (0-5) Urine Squamous Epithelial Cells Few /hpf (<5) Urine Calcium Oxalate Crystals Few (None Seen) Urine Bacteria None seen /hpf (None Seen) Urine Mucus Few (None Seen) Urine Glucose Normal mg/dL (Normal) Platelet Estimate Decreased Clumped Platelets Few Hypochromasia (manual) Slight Anisocytosis (manual) Marked Microcytosis Slight Other Laboratory Tests 01/03/25 06:02 Brief Hx & Hospital Course: This is a 50 years old female with past medical history of angina, anemia, congestive heart failure, COPD, hypertension, kidney stone, and chronic kidney failure came to emergency department because of vaginal bleed. The patient also had dizziness, fatigue, weakness. The patient has a history of fibroid uterine which has been removed in 2021. Since then she continuing to have bleeding on and off. The patient was found to have Hemoglobin of 7.7. Patient received two packed red blood cell transfusions. The patient subsequently has a Hysteroscopy fractional D&C endometrial ablation x2 successfully. Today her hemoglobin is stable at 9.8. I am going to discharge her home. Advised her to follow up with primary care physician 1-2 weeks. Follow up with OBGYN per schedule. Activity as tolerated. Diet per home diet. Physical exam: HEENT: Normocephalic atraumatic pupils equal react to light and accommodation. Extraocular muscles intact, conjunctiva pink, oropharynx moist, no thrush, no exudate. Lymphatic: No lymphadenopathy Cardiovascular exam: S1, S2 was heard. No murmurs, rubs, gallops Lung: Clear on auscultation bilaterally, no wheeze, rale, rhonchi. GI: Abdominal soft, nondistended, nontenderness, positive bowel sounds. Extremity: No crepitus, cyanosis, edema. Pedal pulses present bilateral. Full range of motion. Skin: Normal turgor, no rash. Psych: Alert, oriented x3. Neurology: No focal deficits, cranial nerve II to XII grossly intact. This medical document was created using an electronic medical record system with [employer] direct computerized dictation system. Although this document has been carefully reviewed, there may still be some phonetic and typographical errors. These areas are purely typographical due to imperfections of the software programs, and do not reflect any compromise in the patient's medical care. Condition at Discharge: Stable Final Diagnosis/Problems List Symptomatic anemia due to abnormal uterine bleed status post blood transfusions Fibroid uterine with dyssynchronous endometrium status post ablation x2 Hypertension Discharge Disposition: Home Discharge Instruct/Medications Diet: Regular Activity: No Restrictions, As Tolerated Follow Up/Referral: pcp 1-2 julian stain wiper per schedule Discharge Statement: "Patient was advised to return to the ER or call 911 if any headaches, dizziness, shortness of breath, chest pain, abdominal pain, bleeding, fevers, or worsening of medical condition. Patient was counseled about treatment plan, medications, possible side effects, patientverbalized understanding. All questions were answered to the best of my ability. This discharge took greater then 30 minutes in planning, reviewing documentation, counseling the patient, and discussing with other team members." ASSESSMENT ASSESSMENT Assessment See other operative report Date of Service: Jan 04, 2025 Billing Provider: KARAN MONTGOMERY MD Common Visit Codes: 76544-DLZ/OBS DISCH DAY >30min KARAN MONTGOMERY MD Jan 04, 2025 14:12
== END 2025-01-04 16:00 | disposition home or self-care (01) | DRG 742 ==
LOC: ER 14:11 → OVERFLOW 20:45 → TELE-EAST 20:46
PROVIDERS: ADMIT Nurse Practitioner Family; ATTEND Nurse Practitioner Family
PROC: 30233N1 Transfusion of Nonautologous Red Blood Cells into Peripheral Vein, Percutaneous Approach (ICD-10-PCS; principal; 2025-01-02)
PROC: 0U5B8ZZ Destruction of Endometrium, Via Natural or Artificial Opening Endoscopic (ICD-10-PCS; 2025-01-04)
DX: D25.1 Intramural leiomyoma of uterus (principal); I13.0 Hypertensive heart and chronic kidney disease with heart failure and stage 1 through stage 4 chronic kidney disease, or unspecified chronic kidney disease; N93.8 Other specified abnormal uterine and vaginal bleeding; J44.9 Chronic obstructive pulmonary disease, unspecified; I50.9 Heart failure, unspecified; N18.9 Chronic kidney disease, unspecified; D50.0 Iron deficiency anemia secondary to blood loss (chronic); E11.22 Type 2 diabetes mellitus with diabetic chronic kidney disease; Z79.2 Long term (current) use of antibiotics; Z79.899 Other long term (current) drug therapy; Z79.84 Long term (current) use of oral hypoglycemic drugs; Z87.442 Personal history of urinary calculi
CPT/HCPCS: 36415; 36430; 71045; 76856; 80048; 80053; 81001; 83880; 85025; 85610; 86850; 86870; 86900; 86901; 86902; 86922; G0378; J1100; J1885; J2405; J2704

== ENCOUNTER 2025-01-21 03:10 | Inpatient (IN) | payer OTHER, MEDICAID ==
[~2025-01-21] VITALS: Ht 170.2 cm; Wt 92.2 kg
--- NOTE | 2025-01-21 05:21 | ED.PDOC ---
History of Present Illness HPI Comments 50 y/o obese F presents with c/o palpitations, dizziness, lightheadedness, bilateral lower leg swelling, non-radiating, suprapubic abdominal pain, and abnormal vaginal bleeding with clot production, today. Patient reports onset of symptoms, last night, that has been progressively worsening since. Patient rep orts a history of anemia w/blood transfusions, angina, CHF w/lasix use, CKF, COPD, HTN, and fibroid uterine with dyssynchronous endometrium status post ablation x2 on 01/04/25. She denies any weakness, chest pain, shortness of breath, or other associated symptoms or modifiers at this time. Chief Complaint: Vaginal Bleed Time Seen by MD: 04:30 Primary Care Provider: ANDREZ Reviewed Notes: Nurses Notes, Medications, Allergies Allergies: Coded Allergies: NO KNOWN ALLERGIES (Unverified , 03/15/17) Home Meds Active Scripts Potassium Chloride (Klor-Con 8) 8 Meq Tab, 8 MEQ PO DAILY for 60 Days, #60 TAB Prov:ALYSSA MERCER NP 09/27/23 Furosemide (Lasix) 20 Mg Tb, 1 TAB PO DAILY, #90 TAB 1 Refill Prov:ALYSSA MERCER NP 09/27/23 Albuterol Sulfate (VENTOLIN MDI) 90 Mcg Ih, 90 MCG IN Q4HP PRN for 30 Days, #1 INH 1 Refill Prov:LAYSSA MERCER NP 09/27/23 Prednisone (Prednisone) 20 Mg Tab, 20 MG PO DAILY for 5 Days, #5 MG Prov:ALYSSA MERCER NP 09/27/23 Doxycycline (Monohydrate) (Doxycycline) 100 Mg Cap, 1 MG PO BID for 7 Days, #14 CAP Prov:ALYSSA MERCER NP 09/27/23 Reported Medications Allopurinol (Allopurinol) 100 Mg Tab, 100 MG PO DAILY for 30 Days, MG 09/15/17 Fluoxetine Hcl (Fluoxetine Hcl) 20 Mg Cap, 20 MG PO PRN for 30 Days, MG 09/15/17 Meclizine Hcl (Meclizine Hcl) 25 Mg Tab, 25 MG PO PRN PRN for DIZZINESS for 30 Days, MG 09/15/17 Ferrous Sulfate (Ferrous Sulfate) 325 Mg Tab, 325 MG PO DAILY for 30 Days, MG 09/15/17 Metoprolol Tartrate (Metoprolol Tartrate) 50 Mg Tab, 50 MG PO BID for 30 Days, MG 09/15/17 Triamterene & Hydrochlorothiaz (Maxzide-25) Tab, 1 TAB PO PRN, #30 TAB 5 Refills 09/15/17 Lactulose (Lactulose) 10 Gm/15 Ml Day, 10 GM PO BID 09/15/17 Polyethylene Glycol (Glycolax) 3,350 Nf Pow, 3350 NF PO DAILY, POW 09/15/17 Docusate Sodium (Docusate Sodium) 100 Mg Tab, 100 MG PO DAILYP PRN for FOR CONSTIPATION for 30 Days, MG 09/15/17 Mode of Arrival: Wheelchair Past Medical History PAST MEDICAL HISTORY: Anemia, Angina, CHF, CKF, COPD, HTN, Kidney Stones Past Medical History (Other): obesity Surgical History (Other): blood transfusions B[employer] [place] History: Uterine Fibroids (Fibroid uterine with dyssynchronous endometrium status post ablation x2) Family History Family History: Reviewed,noncontributory to illness Social History Smoker: Non-Smoker Alcohol: Denies ETOH Use Drugs: Denies Drug Use Lives In: Home All Other Systems: Reviewed and Negative (Comprehensive systems review obtained and negative except for what is stated in the HPI.) Physical Exam General Appearance: Moderate Distress, Obese HEENT: Normal ENT Inspection, Pharynx Normal, TMs Normal Neck: Full Range of Motion, Non-Tender, Normal, Normal Inspection Respiratory: Chest Non-Tender, Lungs Clear, No Accessory Muscle Use, No Respiratory Distress, Normal Breath Sounds Cardiovascular: No Edema, No JVD, No Murmur, No Gallop, Normal Peripheral Pulses, Regular Rate/Rhythm Breast Exam: Deferred Gastrointestinal: No Organomegaly, Non Tender, No Pulsatile Mass, Normal Bowel Sounds, Soft Genitalia: Deferred Pelvic: Deferred Rectal: Deferred Extremities: No calf tenderness, Normal capillary refill, Pedal edema, Swelling (Bilateral lower extremity) Musculoskeletal : Apperance: Normal Neurologic: Alert, assistant coach II-XII nml as Tested, No Motor Deficits, Normal Affect, Normal Mood, No Sensory Deficits Cerebellar Function: NOT DONE Reflexes: NOT DONE Skin: Dry, Pallor, Warm Peripheral Pulses: 3+ Radial (R), 3+ Radial (L) Lymphatic: No Adenopathy Was a procedure done? Was a procedure done?: No Differential Dx Considerations may include: anemia, post-op complications, electrolyte imbalance, dehydration, UTI, PID, among others X-Ray, Labs, Meds, VS Vital Signs Date Time Temp Pulse Resp B/P (MAP) Pulse Ox O2 Delivery O2 Flow Rate FiO2 01/21/25 08:12 89 16 96 Room Air* 0 21 01/21/25 07:02 98.5 84 14 128/99 (109) 96 98.5 01/21/25 03:36 99.3 101 16 134/90 (105) 98 99.3 Lab Test 01/21/25 05:03 Range/Units White Blood Count 8.1 4.4-10.8 10^3/uL Red Blood Count 2.84 L 4.0-5.20 10^6/uL Hemoglobin 7.6 L 12.2-16.2 g/dL Hematocrit 23.8 L 36.0-46.0 % Mean Corpuscular Volume 84.0 80.0-100.0 fL Mean Corpuscular Hemoglobin 26.9 L 28.0-32.0 pg Mean Corpuscular Hemoglobin Concent 32.1 32.0-36.0 g/dL Red Cell Distribution Width 29.7 H 11.8-14.3 % Platelet Count 186 140-450 10^3/uL Mean Platelet Volume 8.8 6.9-10.8 fL Neutrophils (%) (Auto) 88.9 H 37.0-80.0 % Lymphocytes (%) (Auto) 5.6 L 10.0-50.0 % Monocytes (%) (Auto) 4.9 0.0-12.0 % Eosinophils (%) (Auto) 0.1 0.0-7.0 % Basophils (%) (Auto) 0.5 0.0-2.0 % Neutrophils # (Auto) 7.2 1.6-8.6 10 ^3/uL Lymphocytes # (Auto) 0.5 0.4-5.4 10 ^3/uL Monocytes # (Auto) 0.4 0-1.3 10 ^3/uL Eosinophils # (Auto) 0 0-0.8 10 ^3/uL Basophils # (Auto) 0 0-0.2 10 ^3/uL Nucleated Red Blood Cells 0.1 % Platelet Estimate Adequate Large Platelets Few Anisocytosis (manual) Slight Prothrombin Time 11.3 9.3-11.8 sec Prothrombin Time INR 1.07 0.9-1.15 Activated Partial Thromboplast Time 30.8 24.5-34.5 SEC Sodium Level 136 136-145 mmol/L Potassium Level 3.5 3.5-5.1 mmol/L Chloride Level 101 98-107 mmol/L Carbon Dioxide Level 30 20-31 mmol/L Anion Gap 5 5-15 Blood Urea Nitrogen 15 9-23 mg/dL Creatinine 1.25 H 0.550-1.02 mg/dL Glomerular Filtration Rate Calc 52 >90 mL/min BUN/Creatinine Ratio 12.0 10.0-20.0 Serum Glucose 120 H 74-106 mg/dL Calcium Level 8.7 8.7-10.4 mg/dL Troponin I High Sensitivity 66 *H </=34 ng/L Patient alert pain Complaining of shortness a breath leg swelling. Vitals stable. Answering all questions. Cardiac marker elevated. Possible demand ischemia. EKG does not show any acute changes. She is anemic. Blood transfusion. Reviewed her previous history. Explained to the patient. Continue cardiac monitoring. Time of 1ST Reevaluation: 05:00 Reevaluation 1ST: Unchanged Patient Education/Counseling: Diagnosis, Treatment Family Education/Counseling: No Family Present Additional Information Previous visit documents reviewed: January 02, 2025 encounter for symptomatic anemia The following tests were ordered, and results were reviewed by me: CT abdomen/pelvis w/IV contrast, CXR, troponin, CBC, BMP, type and screen, PTPTT Additional Information was gathered from interviewing the following independent historians: n/a I reviewed and agreed with the following test results read by other providers: CT abdomen/pelvis w/IV contrast, CXR I discussed treatment and results with medical personnel and: Patient Departure 1 Departure Time of Disposition: 09:51 Impression: Primary Impression: CHF (congestive heart failure) Qualified Codes: I50.43 - Acute on chronic combined systolic (congestive) and diastolic (congestive) heart failure Additional Impressions: Symptomatic anemia Demand ischemia Uterine fibroid Qualified Codes: D25.9 - Leiomyoma of uterus, unspecified Disposition: ADMITTED INPATIENT Admit to: Med Surg Condition: Guarded Critical Care Note Critical Care Time?: Yes (90 min-critical care time only) Stability Stability form required: No Heart Score Heart Score: Heart Score Response (Comments) Value History Slightly Suspicious 0 EKG Normal 0 Age 45-64 1 Risk Factors 1 or 2 risk factors 1 Troponin 1-2 x's Normal limit 1 Total 3 I personally scribed for ALISA BAEZA MD ([email or web address]) on 01/21/25 at 05:21. Electronically submitted by Luis Craft [email or web address]). ALISA BAEZA MD Jan 21, 2025 05:21 SUNDEEP SANDS MD Jan 21, 2025 09:52
[2025-01-21 05:32] LABS: Basophils # (auto) 0 10 ^3/uL (0-0.2); Eosinophils # (auto) 0 10 ^3/uL (0-0.8); Hemoglobin 7.6 g/dL (12.2-16.2); Monocytes # (auto) 0.4 10 ^3/uL (0-1.3)
[2025-01-21 05:37] LABS: Basophils % (auto) 0.5 % (0.0-2.0); Eosinophils % (auto) 0.1 % (0.0-7.0); Hematocrit 23.8 % (36.0-46.0); Lymphocytes # (auto) 0.5 10 ^3/uL (0.4-5.4); Lymphocytes % (auto) 5.6 % (10.0-50.0); Mean Corpuscular Hemoglobin 26.9 pg (28.0-32.0); Mean Corpuscular Hgb Conc. 32.1 g/dL (32.0-36.0); Monocytes % (auto) 4.9 % (0.0-12.0); Neutrophils # (auto) 7.2 10 ^3/uL (1.6-8.6); Neutrophils % (auto) 88.9 % (37.0-80.0); Nucleated Red Blood Cells % 0.1 %; Platelet Count (auto) 186 10^3/uL (140-450); Red Blood Cells 2.84 10^6/uL (4.0-5.20); Red Cell Distribution Width 29.7 % (11.8-14.3); White Blood Cell 8.1 10^3/uL (4.4-10.8)
[2025-01-21 05:38] LABS: Chloride 101 mmol/L (98-107)
[2025-01-21 05:39] LABS: Anion Gap 5 (5-15); Carbon Dioxide 30 mmol/L (20-31)
[2025-01-21 05:42] LABS: Calcium 8.7 mg/dL (8.7-10.4); Potassium 3.5 mmol/L (3.5-5.1); Sodium 136 mmol/L (136-145)
[2025-01-21 05:44] LABS: Blood Urea Nitrogen 15 mg/dL (9-23)
[2025-01-21 05:53] LABS: Glucose 120 mg/dL (74-106)
[2025-01-21 05:54] LABS: INR 1.07 (0.9-1.15); Partial Thromboplastin Time 30.8 SEC (24.5-34.5); Prothrombin Time 11.3 sec (9.3-11.8)
[2025-01-21 07:02] LABS: Anisocytosis Slight
[2025-01-21 07:03] LABS: Large Platelets FEW; Platelet Estimate Adequate
--- NOTE | 2025-01-21 07:59 | DVH ---
CLINICAL INFORMATION: 50 years old, Female; shortness of breath. TECHNIQUE: Single AP portable chest radiograph was obtained. COMPARISON: XY CHEST PORTABLE on DOS: 01/03/25, XY CHEST XRAY 1 VIEW on DOS: 07/30/24, XY CHEST XRAY 1 V IEW on DOS: 09/25/23 FINDINGS: Lungs: Clear. Cardiac: Moderate cardiomegaly, may be accentuated by portable AP technique. Pulmonary vasculature: Unremarkable. Mediastinum/grey: Unremarkable. Bones: No acute osseous abnormality identified. Other: No other significant findings. IMPRESSION: Cardiomegaly. No other evidence of acute disease in the chest.
[2025-01-21 08:12] VITALS: PULSE 89; RESP 16; O2SAT 96
--- NOTE | 2025-01-21 08:22 | DVH ---
Exam: CT CT AB PEL WITH IV CON ONLY History: abdominal pain, vaginal bleeding Comparison Study: Pelvic ultrasound performed on 01/02/2025. Technique: Multidetector spiral CT of the abdomen was performed from lung bases to pubic symphysis. A xial imaging was performed with intravenous contrast following the uneventful administration of 100 m l Omnipaque 300. Coronal and sagittal multiplanar reformats were obtained from the axial data set by the technologist. Radiation Dose : 1. Abdomen/Pelvis: CTDIvol 20.48 mGy, DLP 1098.89 mGy*cm. Findings: Lung Bases: Excluded from the [id number]. Liver: The liver is normal in size. No focal lesions. Gallbladder and Biliary Tree: The gallbladder is unremarkable. No intrahepatic or extrahepatic biliar y ductal dilatation. Spleen: Unremarkable Pancreas: The pancreas enhances normally and there are no focal lesions. The main pancreatic duct is not dilated Adrenal Glands: Unremarkable Kidneys: Kidneys enhance symmetrically. No calculi or hydronephrosis. GI tract: The stomach is grossly normal in appearance. No evidence of small bowel wall thickening or abnormal dilatation to suggest bowel obstruction. Surgical material noted in the right colon. Stool scattered throughout the colon. The appendix is not visualized however there are no inflammatory ch anges seen in the right lower quadrant. Peritoneum/mesentery/retroperitoneum. No evidence of free intraperitoneal air. No ascites. No evidenc e of suspicious lymphadenopathy. Abdominal Wall: Ventral abdominal wall linear soft tissue density compatible with postsurgical scarri ng.. Vasculature: Abdominal aorta and main branches are unremarkable. Normal vascular enhancement. Urinary Bladder: Grossly unremarkable for degree of distention. Pelvic Organs: Enlarged and heterogeneous uterus. There is an ovoid central mass in the endometrial cavity which measures 7.2 cm surrounded by fluid in the endometrium. No adnexal abnormality. Musculoskeletal: No aggressive focal bony lesions, acute fractures or dislocation. IMPRESSION: 1. Enlarged uterus containing a 7.2 cm mass in the endometrial cavity. This may reflect a large fibro id or large blood clot. Other masses such as neoplasm can not be excluded. Pelvic ultrasound and/or a n Contrast-enhanced pelvic MRI recommended for further evaluation.
[2025-01-21 10:02] LABS: Urine Bacteria None Seen /hpf (None Seen)
[2025-01-21 10:13] VITALS: PULSE 85; RESP 10; O2SAT 96
[2025-01-21 10:14] LABS: Urine Blood 2+ /uL (Negative); Urine Clarity Clear (Clear); Urine Color Light-Yellow (Yellow); Urine Protein, UAD Negative (Negative); Urine Specific Gravity 1.049 (1.001-1.035); Urine Squamous Epithelial Cell FEW /hpf (<5); Urine Urobilinogen Normal (Negative); Urine WBC 1 /HPF (0-5); Urine pH 7.5 (5.0-9.0)
[2025-01-21] MEDS ORDERED: MECLIZINE HCL 25 MG TAB PO PRN (12:45)
[2025-01-21] MEDS ORDERED: DOCUSATE SOD 100 MG CAP PO PRN (12:45)
[2025-01-21] MEDS ORDERED: ONDANSETRON HCL 4 MG/2 ML VIAL IV PRN (12:45)
[2025-01-21] MEDS ORDERED: PATIENTS OWN MEDICATION (Docusate Sodium 100 MG) PO PRN (12:45)
[2025-01-21] MEDS ORDERED: FLUoxetine HCL 20 MG CAP PO SCH (12:45)
[2025-01-21] MEDS ORDERED: ACETAMINOPHEN 325 MG TAB PO PRN (12:45)
[2025-01-21] MEDS ORDERED: LEVO50TA7 PO (12:47)
[2025-01-21] MEDS ORDERED: METH10TA12 PO (12:47)
--- NOTE | 2025-01-21 13:06 | DVHHP2 ---
History of Present Illness Reason for Visit: Vaginal Bleeding History of Present Illness Paola Art is a 50-year-old female with past medical history of CHF, hypertension, chronic renal insufficiency, anemia, vertigo, uterine fibroids, dyssynchronous endometrium and hypothyroidism who came in for vaginal bleeding. Patient was admitted here earlier this month for severe anemia and vaginal bleeding. She underwent a endometrial ablation during her visit. She states the bleeding stopped for about 7 days then came back yesterday. She took her tranexamic acid and the bleeding slowed down. The bleeding returned in the evening the medication was not helping so she came to the hospital. She states she began to get scared due to the amount of bleeding, she began feeling dizzy, palpitations, and lightheaded. 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 Colostomy that has been reversed, colon reection) Smoke: <1 pack per day ALCOHOL: none Drugs: None Lives: with Family Domestic Violence: Neg Review of Systems Constitutional: No: Fever, Chills, Sweats, Weakness, Malaise, Other Eyes: No: Pain, Vision change, Conjunctivae inflammation, Eyelid inflammation, Other, Redness ENT: No: Ear pain, Ear discharge, Nose pain, Nose discharge, Nose congestion, Mouth pain, Mouth swelling, Throat pain, Throat swelling, Other Respiratory: No: Cough, Dry, Shortness of breath, SOB with excertion, Wheezing, Hemoptysis, Pleuritic Pain, Sputum, Wheezing, Other Cardiovascular: No: Chest Pain, Palpitations, Orthopnea, Paroxysmal Noc. Dyspnea, Edema, Lt Headedness, Other Gastrointestinal: No: Nausea, Vomiting, Abdominal Pain, Diarrhea, Constipation, Melena, Hematochezia, Other Genitourinary: No Dysuria, No Frequency, No Incontinence, No Hematuria, No Retention, No Other Musculoskeletal: No: other, neck pain, shoulder pain, arm pain, back pain, hand pain, leg pain, foot pain Skin: No: Rash, Lesions, Jaundice, Bruising, Other Neurological: No: Weakness, Numbness, Incoordination, Change in speech, Confusion, Seizures, Other Allergies: Coded Allergies: NO KNOWN ALLERGIES (Unverified , 03/15/17) Medications Current Medications Medications Dose Ordered Sig/Deidre Route Start Time Stop Time Status Last Admin Dose Admin Sodium Chloride 10 ml Q8HR IV 01/21/25 14:00 UNV Ondansetron HCl 4 mg Q4HP PRN IV 01/21/25 12:45 UNV Docusate Sodium 100 mg BIDPRN PRN PO 01/21/25 12:45 UNV Acetaminophen 650 mg Q6HP PRN PO 01/21/25 12:45 UNV Fluoxetine HCl 20 mg PRN PO 01/21/25 12:45 UNV Furosemide 20 mg DAILY PO 01/22/25 10:00 UNV Meclizine HCl 25 mg PRN PRN PO 01/21/25 12:45 UNV Metoprolol Tartrate 50 mg BID PO 01/21/25 22:00 UNV Patient Own Medication 100 mg DAILYP PRN PO 01/21/25 12:45 UNV Patient Own Medication 325 mg DAILY PO 01/22/25 10:00 UNV Patient Own Medication 10 gm BID PO 01/21/25 22:00 UNV Exam Vital Signs Vital Signs Date Time Temp Pulse Resp B/P (MAP) Pulse Ox O2 Delivery O2 Flow Rate FiO2 01/21/25 12:08 97.8 70 11 132/90 (104) 97 97.8 01/21/25 10:13 Room Air* 0 21 General Appearance: Alert, Oriented X3, Cooperative, mild distress HEENT: Atraumatic, PERRLA Respiratory: Clear to auscultation, Normal air movement Cardiovascular: Regular rate, Normal S1, Normal S2, No murmurs Abdominal: Normal bowel sounds, Other (firm, distended, vaginal bleeding) Extremities: No clubbing, No cyanosis, No edema, Normal pulses Skin: No rashes, No breakdown, No significant lesion Neuro: Normal gait, Normal speech, Strength at 5/5 X4 ext Psych/Mental Status: Mental status NL, Mood NL Labs/Xrays Labs Test 01/21/25 10:49 01/21/25 09:20 01/21/25 05:03 Range/Units Troponin I High Sensitivity 63 *H </=34 ng/L Urine Color Light-yellow Yellow Urine Clarity Clear Clear Urine pH 7.5 5.0-9.0 Urine Specific [place] 1.049 H 1.001-1.035 Urine Protein Negative Negative Urine Ketones Negative Negative Urine Blood 2+ H Negative /uL Urine Nitrite Negative Negative Urine Bilirubin Negative Negative Urine Urobilinogen Normal Negative mg/dL Urine Leukocyte Esterase Negative Negative /uL Urine RBC 46 0 - 4 /hpf Urine Microscopic WBC 1 0-5 /HPF Urine Squamous Epithelial Cells Few <5 /hpf Urine Bacteria None seen None Seen /hpf Urine Glucose Normal Normal mg/dL White Blood Count 8.1 4.4-10.8 10^3/uL Red Blood Count 2.84 L 4.0-5.20 10^6/uL Hemoglobin 7.6 L 12.2-16.2 g/dL Hematocrit 23.8 L 36.0-46.0 % Mean Corpuscular Volume 84.0 80.0-100.0 fL Mean Corpuscular Hemoglobin 26.9 L 28.0-32.0 pg Mean Corpuscular Hemoglobin Concent 32.1 32.0-36.0 g/dL Red Cell Distribution Width 29.7 H 11.8-14.3 % Platelet Count 186 140-450 10^3/uL Mean Platelet Volume 8.8 6.9-10.8 fL Neutrophils (%) (Auto) 88.9 H 37.0-80.0 % Lymphocytes (%) (Auto) 5.6 L 10.0-50.0 % Monocytes (%) (Auto) 4.9 0.0-12.0 % Eosinophils (%) (Auto) 0.1 0.0-7.0 % Basophils (%) (Auto) 0.5 0.0-2.0 % Neutrophils # (Auto) 7.2 1.6-8.6 10 ^3/uL Lymphocytes # (Auto) 0.5 0.4-5.4 10 ^3/uL Monocytes # (Auto) 0.4 0-1.3 10 ^3/uL Eosinophils # (Auto) 0 0-0.8 10 ^3/uL Basophils # (Auto) 0 0-0.2 10 ^3/uL Nucleated Red Blood Cells 0.1 % Platelet Estimate Adequate Large Platelets Few Anisocytosis (manual) Slight Prothrombin Time 11.3 9.3-11.8 sec Prothrombin Time INR 1.07 0.9-1.15 Activated Partial Thromboplast Time 30.8 24.5-34.5 SEC Sodium Level 136 136-145 mmol/L Potassium Level 3.5 3.5-5.1 mmol/L Chloride Level 101 98-107 mmol/L Carbon Dioxide Level 30 20-31 mmol/L Anion Gap 5 5-15 Blood Urea Nitrogen 15 9-23 mg/dL Creatinine 1.25 H 0.550-1.02 mg/dL Glomerular Filtration Rate Calc 52 >90 mL/min BUN/Creatinine Ratio 12.0 10.0-20.0 Serum Glucose 120 H 74-106 mg/dL Calcium Level 8.7 8.7-10.4 mg/dL Exam: CT CT AB PEL WITH IV CON ONLY Findings: Lung Bases: Excluded from the [id number]. Liver: The liver is normal in size. No focal lesions. Gallbladder and Biliary Tree: The gallbladder is unremarkable. No intrahepatic or extrahepatic biliary ductal dilatation. Spleen: Unremarkable Pancreas: The pancreas enhances normally and there are no focal lesions. The main pancreatic duct is not dilated Adrenal Glands: Unremarkable Kidneys: Kidneys enhance symmetrically. No calculi or hydronephrosis. GI tract: The stomach is grossly normal in appearance. No evidence of small bowel wall thickening or abnormal dilatation to suggest bowel obstruction. Surgical material noted in the right colon. Stool scattered throughout the colon. The appendix is not visualized however there are no inflammatory changes seen in the right lower quadrant. Peritoneum/mesentery/retroperitoneum. No evidence of free intraperitoneal air. No ascites. No evidence of suspicious lymphadenopathy. Abdominal Wall: Ventral abdominal wall linear soft tissue density compatible with postsurgical scarring.. Vasculature: Abdominal aorta and main branches are unremarkable. Normal vascular enhancement. Urinary Bladder: Grossly unremarkable for degree of distention. Pelvic Organs: Enlarged and heterogeneous uterus. There is an ovoid central mass in the endometrial cavity which measures 7.2 cm surrounded by fluid in the endometrium. No adnexal abnormality. Musculoskeletal: No aggressive focal bony lesions, acute fractures or dislocatio n. IMPRESSION: 1. Enlarged uterus containing a 7.2 cm mass in the endometrial cavity. This may reflect a large fibroid or large blood clot. Other masses such as neoplasm can not be excluded. Pelvic ultrasound and/or an Contrast-enhanced pelvic MRI curtis mmended for further evaluation. TECHNIQUE: Single AP portable chest radiograph was obtained. FINDINGS: Lungs: Clear. Cardiac: Moderate cardiomegaly, may be accentuated by portable AP technique. Pulmonary vasculature: Unremarkable. Mediastinum/grey: Unremarkable. Bones: No acute osseous abnormality identified. Other: No other significant findings. IMPRESSION: Cardiomegaly. No other evidence of acute disease in the chest. Assessment/Plan Assessment/Plan Assessment: Uterine fibroid, Symptomatic anemia, Elevated troponin, demand ischemia, Dyssynchronous Endometrium, Chronic pain, CHF, Hypertension, Plan: Admit to Med-Surg, THERAPEUTIC CONSULTANT consult, Transfuse 1 unit PRBC, H&H post transfusion, Manage/Monitor H&H closely, Home medications reconciled, Plan discussed with: Patient My Orders Orders - RYAN GRACE Procedure Category Date Status Time Admit ADMIT 01/21/25 Transmitted 12:40 Code Status CODE 01/21/25 Transmitted 12:40 Sodium Chloride Lock PHA 01/21/25 Logged (Saline Lock Ns) 14:00 Ondansetron Hcl PHA 01/21/25 Logged (Zofran) 12:45 Docusate Sodium PHA 01/21/25 Logged Capsule (Colace 12:45 Complete Blood Count LAB 01/22/25 Verified 04:00 Comprehensive LAB 01/22/25 Verified Metabolic Panel 04:00 Cardiac DIET 01/21/25 Transmitted Diet-2gna,Lofat,Lochol Lunch Condition: Critical EDWIN 01/21/25 In Process 12:40 Acetaminophen Tablet PHA 01/21/25 Logged (Tylenol Tablet) 12:45 * Warehouse Insulation Worker Consultation CONS 01/21/25 Transmitted 12:40 Fluoxetine Capsule PHA 01/21/25 Logged (Prozac Capsule) 12:45 Furosemide Tablet PHA 01/22/25 Logged (Lasix Tablet) 10:00 Meclizine Tablet PHA 01/21/25 Transmitted (Antivert Tablet) 12:45 Metoprolol Tartrate PHA 01/21/25 Transmitted Tablet (Lopressor Ta 22:00 (Nf) Docusate Sodium PHA 01/21/25 Transmitted 12:45 (Nf) Ferrous Sulfate PHA 01/22/25 Transmitted 10:00 (Nf) Lactulose PHA 01/21/25 Transmitted 22:00 Date of Service: Jan 21, 2025 Billing Provider: RYAN GRACE Common Visit Codes: [id number] INP/OBS CARE (MOD) RYAN GRACE Jan 21, 2025 13:06
[2025-01-21 13:12] VITALS: BP 135/94; PULSE 77; RESP 18; TEMP 97.5
[2025-01-21 13:29] VITALS: BP 144/90; PULSE 72; RESP 14; TEMP 98.1
[2025-01-21] MEDS: METHADONE HCL 10 MG TAB PO SCH (13:44)
[2025-01-21] MEDS: SODIUM CHLOR 0.9% PF (SALINE LOCK) 10ML VIAL/SYR IV SCH (14:01)
--- NOTE | 2025-01-21 15:16 | DVHINCON2 ---
Date of service: Jan 21, 2025 Referring Physician hospitalist Reason for Consultation aub History of Present Illness pt is 50 y/o female admitted for vag bleeding .she had ablation done by dr riddle on 01/04/25 somewhat unsuccessful .pt last pap was in 2023 which was nl.due to extensive adhesions hysterectomy was not performed.sono on 01/02 shows nl endometrium Past Medical History chf,angina,anemia,copd Past Surgical History d and c,hysterosocpy endomet ablation,lamniectomy Family History na Social History na Patient Family History: Patient reports no known family medical history. Allergies: Coded Allergies: NO KNOWN ALLERGIES (Unverified , 03/15/17) Home Meds Active Scripts Potassium Chloride (Klor-Con 8) 8 Meq Tab, 8 MEQ PO DAILY for 60 Days, #60 TAB Prov:ALYSSA MERCER BOW TACKER 09/27/23 Furosemide (Lasix) 20 Mg Tb, 1 TAB PO DAILY, #90 TAB 1 Refill Prov:ALYSSA MERCER BOW TACKER 09/27/23 Albuterol Sulfate (VENTOLIN MDI) 90 Mcg Ih, 90 MCG IN Q4HP PRN for 30 Days, #1 INH 1 Refill Prov:ALYSSA MERCER BOW TACKER 09/27/23 Reported Medications Levothyroxine Sodium (Levothyroxine Sodium) 50 Mcg Tab, 1 TAB PO QAM 01/21/25 Methadone Hcl (Methadone Hcl) 10 Mg Tab, 1 TAB PO Q6H 01/21/25 Allopurinol (Allopurinol) 100 Mg Tab, 100 MG PO DAILY for 30 Days, MG 09/15/17 Fluoxetine Hcl (Fluoxetine Hcl) 20 Mg Cap, 20 MG PO PRN for 30 Days, MG 09/15/17 Meclizine Hcl (Meclizine Hcl) 25 Mg Tab, 25 MG PO PRN PRN for DIZZINESS for 30 Days, MG 09/15/17 Ferrous Sulfate (Ferrous Sulfate) 325 Mg Tab, 325 MG PO DAILY for 30 Days, MG 09/15/17 Metoprolol Tartrate (Metoprolol Tartrate) 50 Mg Tab, 50 MG PO BID for 30 Days, MG 09/15/17 Triamterene & Hydrochlorothiaz (Maxzide-25) Tab, 1 TAB PO PRN, #30 TAB 5 Refills 09/15/17 Lactulose (Lactulose) 10 Gm/15 Ml Day, 10 GM PO BID 09/15/17 Polyethylene Glycol (Glycolax) 3,350 Nf Pow, 3350 NF PO DAILY, POW 09/15/17 Docusate Sodium (Docusate Sodium) 100 Mg Tab, 100 MG PO DAILYP PRN for FOR CONSTIPATION for 30 Days, MG 09/15/17 Discontinued Scripts Prednisone (Prednisone) 20 Mg Tab, 20 MG PO DAILY for 5 Days, #5 MG Prov:ALYSSA MERCER BOW TACKER 09/27/23 Doxycycline (Monohydrate) (Doxycycline) 100 Mg Cap, 1 MG PO BID for 7 Days, #14 CAP Prov:ALYSSA MERCER BOW TACKER 09/27/23 Current Medications Current Medications Medications (Trade) Dose Ordered Sig/Deidre Route PRN Reason Start Time Stop Time Status Last Admin Sodium Chloride (Saline Lock Ns) 10 ml Q8HR IV 01/21/25 14:00 01/21/25 14:01 Ondansetron HCl (Zofran) 4 mg Q4HP PRN IV NAUSEA / VOMITING 01/21/25 12:45 Docusate Sodium (Colace Capsule) 100 mg BIDPRN PRN PO FOR CONSTIPATION 01/21/25 12:45 Acetaminophen (Tylenol Tablet) 650 mg Q6HP PRN PO PAIN SCALE 1-3 OR TEMP>100.4 01/21/25 12:45 Fluoxetine HCl (PROzac CAPSULE) 20 mg PRN PO 01/21/25 12:45 01/21/25 14:39 DC Furosemide (Lasix Tablet) 20 mg DAILY PO 01/22/25 10:00 Meclizine HCl (Antivert Tablet) 25 mg PRN PRN PO DIZZINESS 01/21/25 12:45 Metoprolol Tartrate (Lopressor Tablet) 50 mg BID PO 01/21/25 22:00 Patient Own Medication 100 mg DAILYP PRN PO FOR CONSTIPATION 01/21/25 12:45 01/21/25 13:02 DC Ferrous Sulfate 325 mg DAILY PO 01/22/25 10:00 Lactulose 15 ml BID PO 01/21/25 22:00 Levothyroxine Sodium (Synthroid Tablet) 50 mcg QAM PO 01/22/25 07:00 Methadone HCl (Methadone HCl Tablet) 10 mg Q6H PO 01/21/25 13:00 01/21/25 13:44 Fluoxetine HCl (PROzac CAPSULE) 20 mg DAILY PO 01/22/25 10:00 Review of Systems Constitutional: no fever, chill, weight loss HEENT: no eye pain, no hearing loss, no oral lesion, no scleral icterus Heart: no chest pain, no chest pressure Lung: no cough, no dyspnea with exertion Abdomen: see HPI : no pain with urination, normal appearing urine Musculoskeletal: no joint pain, no muscle pain Neurological: no seizure, no loss of sensation, no weakness in extremities Pysch: no depression, no anxiety Derm: no rash, no jaundice Vital Signs Vital Signs Date Time Temp Pulse Resp B/P (MAP) Pulse Ox O2 Delivery O2 Flow Rate FiO2 01/21/25 13:29 98.1 72 14 144/90 98.1 01/21/25 12:08 97 01/21/25 10:13 Room Air* 0 21 Physical Exam HEENT: [pale conjuct] NECK: [nl] CARDIAC: [rrr] PULMONARY: [cta] ABDOMEN: [obese,nt] pelvic-vag bleeding noted,uterus 12 wks size Labs/Diagnostic Data Labs Test 01/21/25 10:49 01/21/25 09:20 01/21/25 05:03 Range/Units Troponin I High Sensitivity 63 *H </=34 ng/L Urine Color Light-yellow Yellow Urine Clarity Clear Clear Urine pH 7.5 5.0-9.0 Urine Specific [place] 1.049 H 1.001-1.035 Urine Protein Negative Negative Urine Ketones Negative Negative Urine Blood 2+ H Negative /uL Urine Nitrite Negative Negative Urine Bilirubin Negative Negative Urine Urobilinogen Normal Negative mg/dL Urine Leukocyte Esterase Negative Negative /uL Urine RBC 46 0 - 4 /hpf Urine Microscopic WBC 1 0-5 /HPF Urine Squamous Epithelial Cells Few <5 /hpf Urine Bacteria None seen None Seen /hpf Urine Glucose Normal Normal mg/dL White Blood Count 8.1 4.4-10.8 10^3/uL Red Blood Count 2.84 L 4.0-5.20 10^6/uL Hemoglobin 7.6 L 12.2-16.2 g/dL Hematocrit 23.8 L 36.0-46.0 % Mean Corpuscular Volume 84.0 80.0-100.0 fL Mean Corpuscular Hemoglobin 26.9 L 28.0-32.0 pg Mean Corpuscular Hemoglobin Concent 32.1 32.0-36.0 g/dL Red Cell Distribution Width 29.7 H 11.8-14.3 % Platelet Count 186 140-450 10^3/uL Mean Platelet Volume 8.8 6.9-10.8 fL Neutrophils (%) (Auto) 88.9 H 37.0-80.0 % Lymphocytes (%) (Auto) 5.6 L 10.0-50.0 % Monocytes (%) (Auto) 4.9 0.0-12.0 % Eosinophils (%) (Auto) 0.1 0.0-7.0 % Basophils (%) (Auto) 0.5 0.0-2.0 % Neutrophils # (Auto) 7.2 1.6-8.6 10 ^3/uL Lymphocytes # (Auto) 0.5 0.4-5.4 10 ^3/uL Monocytes # (Auto) 0.4 0-1.3 10 ^3/uL Eosinophils # (Auto) 0 0-0.8 10 ^3/uL Basophils # (Auto) 0 0-0.2 10 ^3/uL Nucleated Red Blood Cells 0.1 % Platelet Estimate Adequate Large Platelets Few Anisocytosis (manual) Slight Prothrombin Time 11.3 9.3-11.8 sec Prothrombin Time INR 1.07 0.9-1.15 Activated Partial Thromboplast Time 30.8 24.5-34.5 SEC Sodium Level 136 136-145 mmol/L Potassium Level 3.5 3.5-5.1 mmol/L Chloride Level 101 98-107 mmol/L Carbon Dioxide Level 30 20-31 mmol/L Anion Gap 5 5-15 Blood Urea Nitrogen 15 9-23 mg/dL Creatinine 1.25 H 0.550-1.02 mg/dL Glomerular Filtration Rate Calc 52 >90 mL/min BUN/Creatinine Ratio 12.0 10.0-20.0 Serum Glucose 120 H 74-106 mg/dL Calcium Level 8.7 8.7-10.4 mg/dL Primary Diagnosis abnormal uterine bleeind with anemia failed aBLATION EXTENSIVE INTRA ABD ADHESIONS PER HX 2' Diagnosis/Comorbidities OBESITY,CHF,ANGINA,COPD Plan RECOMMEND UITERINE ARTERY EMBOLIZATION SINCE PT IS NOT A GOOD SURGICAL CANDIDATE OR TRANSFER TO HIGHER LEVEL OF CARE FOR MANAGEMENT OF AUB.WILL SIGN OFF THANK YOU Plan discussed with: Patient Visit Coding OBGYN Date of Service: Jan 21, 2025 Billing Provider: MASSIEL DENNY DO GRAPHIC TECHNICIAN Common Visit Codes: [id number] SAME DATE (HIGH) GRAPHIC TECHNICIAN Consultation Codes: [id number] CONSULT <80MIN MASSIEL DENNY DO Jan 21, 2025 15:16
[2025-01-21 15:40] VITALS: BP 133/87; PULSE 57; RESP 11; TEMP 97.7
[2025-01-21 16:00] VITALS: BP 135/92; PULSE 56; RESP 11; TEMP 97.1; O2SAT 96
[2025-01-21] MEDS ORDERED: METOPROLOL TARTRATE 50 MG TAB PO SCH (22:00)
[2025-01-21] MEDS ORDERED: LACTULOSE 20Gm/30ML SOLN PO SCH (22:00)
[2025-01-22] MEDS ORDERED: LEVOTHYROXINE SODIUM 50 MCG TAB PO SCH (07:00)
[2025-01-22] MEDS ORDERED: FUROSEMIDE 20 MG TAB PO SCH (10:00)
[2025-01-22] MEDS ORDERED: FLUoxetine HCL 20 MG CAP PO SCH (10:00)
[2025-01-22] MEDS ORDERED: FERROUS SULFATE 325mg EC TAB PO SCH (10:00)
== END 2025-01-21 18:48 | disposition left against medical advice (07) | DRG 760 ==
LOC: ER 03:10 → OVERFLOW 12:40
PROVIDERS: ADMIT Nurse Practitioner Family; ATTEND Nurse Practitioner Family
DX: D25.9 Leiomyoma of uterus, unspecified (principal); I13.0 Hypertensive heart and chronic kidney disease with heart failure and stage 1 through stage 4 chronic kidney disease, or unspecified chronic kidney disease; I24.89 Other forms of acute ischemic heart disease; G89.29 Other chronic pain; N18.9 Chronic kidney disease, unspecified; E66.9 Obesity, unspecified; E03.9 Hypothyroidism, unspecified; D50.0 Iron deficiency anemia secondary to blood loss (chronic); I50.9 Heart failure, unspecified; J44.9 Chronic obstructive pulmonary disease, unspecified; Z87.891 Personal history of nicotine dependence; Z87.442 Personal history of urinary calculi; Z79.899 Other long term (current) drug therapy; Z68.31 Body mass index [BMI] 31.0-31.9, adult; Z53.29 Procedure and treatment not carried out because of patient's decision for other reasons
CPT/HCPCS: 36415; 36430; 71045; 74177; 80048; 81001; 84484; 85025; 85610; 85730; 86850; 86870; 86900; 86901; 86902; 86922; 99291; 99292; G0378

== ENCOUNTER 2025-03-19 15:34 | Emergency (ER) | payer OTHER, MEDICAID ==
[~2025-03-19] VITALS: Ht 170.2 cm; Wt 92.2 kg
[~2025-03-19 15:34] MED LIST changes: -DOXY100C79 PO; +LEVO50TA7 PO; +METH10TA12 PO; -PRED20TA2 PO
[2025-03-19] MEDS ORDERED: NITROGLYCERIN 0.4 MG SL TAB SL ONE (15:45)
[2025-03-19 16:17] LABS: Alanine Aminotransferase 13 U/L (7-40); Albumin 4.1 g/dL (3.2-4.8); Alkaline Phosphatase 59 U/L (46-116); Anion Gap 5 (5-15); Aspartate Aminotransferase 24 U/L (13-40); Blood Urea Nitrogen 18 mg/dL (9-23); Calcium 9.2 mg/dL (8.7-10.4); Glucose 98 mg/dL (74-106); Lipase 36 U/L (12-53); Potassium 3.7 mmol/L (3.5-5.1); Sodium 136 mmol/L (136-145)
[2025-03-19 16:20] LABS: Bilirubin, Total < 0.2 mg/dL (0.2-1.0); Carbon Dioxide 33 mmol/L (20-31); Chloride 98 mmol/L (98-107); Total Protein 9.3 g/dL (5.7-8.2)
--- NOTE | 2025-03-19 16:24 | DVH ---
INDICATION: chest pain TECHNIQUE: Frontal view of the chest. COMPARISON: XY CHEST PORTABLE on DOS: 01/21/25, XY CHEST PORTABLE on DOS: 01/03/25, XY CHEST XRAY 1 VIEW on DOS: 07/30/24, XY CHEST XRAY 1 VIEW on DOS: 09/25/23, XY CHEST PORTABLE on DOS: 09/24/23 FINDINGS: Findings:. The heart and mediastinal contours are grossly unremarkable. There is no evidence of pleu ral disease. The lungs are clear. The bony structures of the chest are intact without fracture. IMPRESSION: 1. No evidence of acute disease.
[2025-03-19 16:39] LABS: Basophils # (auto) 0 10 ^3/uL (0-0.2); Basophils % (auto) 0.9 % (0.0-2.0); Eosinophils # (auto) 0 10 ^3/uL (0-0.8); Eosinophils % (auto) 0.8 % (0.0-7.0); Hematocrit 35.7 % (36.0-46.0); Hemoglobin 11.6 g/dL (12.2-16.2); Lymphocytes # (auto) 1.4 10 ^3/uL (0.4-5.4); Lymphocytes % (auto) 28.5 % (10.0-50.0); Mean Corpuscular Hgb Conc. 32.5 g/dL (32.0-36.0); Mean Corpuscular Volume 86.2 fL (80.0-100.0); Monocytes # (auto) 0.4 10 ^3/uL (0-1.3); Neutrophils % (auto) 61.8 % (37.0-80.0); Nucleated Red Blood Cells % 0.2 %; Platelet Count (auto) 196 10^3/uL (140-450); Red Blood Cells 4.14 10^6/uL (4.0-5.20); Red Cell Distribution Width 19.7 % (11.8-14.3); White Blood Cell 4.9 10^3/uL (4.4-10.8)
--- NOTE | 2025-03-19 16:40 | ED.PDOC ---
History of Present Illness HPI Comments 50-year-old female presents to the ED with a c/o chest pain x 2 days. Patient reports that her pain is localized to her sternal region, radiating to right shoulder. Patient describes pain as sharp, and rates it an 8/10. No distress present at this time. Denies N/V/D. Also complaining of SOB as well as dizziness concern and some right eye blurring. Vital signs were stable at arrival. Chief Complaint: Chest Pain Time Seen by MD: 16:38 Primary Care Provider: ANDREZ Reviewed Notes: Nurses Notes, Medications, Allergies Allergies: Coded Allergies: NO KNOWN ALLERGIES (Unverified , 03/15/17) Home Meds Active Scripts Potassium Chloride (Klor-Con 8) 8 Meq Tab, 8 MEQ PO DAILY for 60 Days, #60 TAB Prov:[facility] 09/27/23 Furosemide (Lasix) 20 Mg Tb, 1 TAB PO DAILY, #90 TAB 1 Refill Prov:[facility] 09/27/23 Albuterol Sulfate (VENTOLIN MDI) 90 Mcg Ih, 90 MCG IN Q4HP PRN for 30 Days, #1 INH 1 Refill Prov:[facility] 09/27/23 Reported Medications Levothyroxine Sodium (Levothyroxine Sodium) 50 Mcg Tab, 1 TAB PO QAM 01/21/25 Methadone Hcl (Methadone Hcl) 10 Mg Tab, 1 TAB PO Q6H 01/21/25 Allopurinol (Allopurinol) 100 Mg Tab, 100 MG PO DAILY for 30 Days, MG 09/15/17 Fluoxetine Hcl (Fluoxetine Hcl) 20 Mg Cap, 20 MG PO PRN for 30 Days, MG 09/15/17 Meclizine Hcl (Meclizine Hcl) 25 Mg Tab, 25 MG PO PRN PRN for DIZZINESS for 30 Days, MG 09/15/17 Ferrous Sulfate (Ferrous Sulfate) 325 Mg Tab, 325 MG PO DAILY for 30 Days, MG 09/15/17 Metoprolol Tartrate (Metoprolol Tartrate) 50 Mg Tab, 50 MG PO BID for 30 Days, MG 09/15/17 Triamterene & Hydrochlorothiaz (Maxzide-25) Tab, 1 TAB PO PRN, #30 TAB 5 Refills 09/15/17 Lactulose (Lactulose) 10 Gm/15 Ml Day, 10 GM PO BID 09/15/17 Polyethylene Glycol (Glycolax) 3,350 Nf Pow, 3350 NF PO DAILY, POW 09/15/17 Docusate Sodium (Docusate Sodium) 100 Mg Tab, 100 MG PO DAILYP PRN for FOR CONSTIPATION for 30 Days, MG 09/15/17 Information Source: Patient Mode of Arrival: Wheelchair Severity: Moderate Timing: Days Duration: Since onset Prehospital treatment: None Past Medical History PAST MEDICAL HISTORY: Anemia, Angina, CHF, CKF, COPD, HTN, Kidney Stones Surgical History: Denies all surgeries [employer]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 Family History Family History: Reviewed,noncontributory to illness Social History Smoker: Non-Smoker Alcohol: Denies ETOH Use Drugs: Denies Drug Use Lives In: Home Constitutional: denies: chills, diaphoresis, fatigue, fever, malaise, sweats, weakness, others EENTM: denies: blurred vision, double vision, ear bleeding, ear discharge, ear drainage, ear pain, ear ringing, eye pain, eye redness, hearing loss, mouth pain, mouth swelling, nasal discharge, nose bleeding, nose congestion, nose pain, photophobia, tearing, throat pain, throat swelling, voice changes, others Respiratory: reports: shortness of breath; denies: cough, hemoptysis, orthopnea, SOB at rest, SOB with excertion, stridor, wheezing, others Cardiovascular: reports: chest pain; denies: dizzy spells, diaphoresis, Dyspnea on exertion, edema, irregular heart beat, left arm pain, lightheadedness, palpitations, PND, syncope, others Gastrointestinal: denies: abdomen distended, abdominal pain, blood streaked bowels, constipated, diarrhea, dysphagia, difficulty swallowing, hematemesis, melena, nausea, poor appetite, poor fluid intake, rectal bleeding, rectal pain, vomiting, others Genitourinary: denies: abnormal vagina bleeding, burning, dyspareunia, dysuria, flank pain, frequency, hematuria, incontinence, pain, , vagina discharge, urgency, others Neurological: reports: dizziness; denies: fainting, headache, left sided numbness, left sided weakness, numbness, paresthesia, pre-existing deficit, ri ght sided numbness, right sided weakness, seizure, speech problems, tingling, tremors, weakness, others Musculoskeletal: denies: back pain, gout, joint pain, joint swelling, muscle pain, muscle stiffness, neck pain, others Integumetry: denies: bruises, change in color, change in hair/nails, dryness, laceration, lesions, lumps, rash, wounds, others Allergic/Immunocompromised: denies: Difficulty Healing, Frequent Infections, Hives, Itching, others Hematologic/Lymphatic: denies: anemia, blood clots, easy bleeding, easy bruising, swollen glands, others Endocrine: denies: excessive hunger, excessive sweating, excessive thirst, excessive urination, flushing, intolerance to cold, intolerance to heat, unexplained weight gain, unexplained weight loss, others Psychiatric: denies: anxiety, bipolar disorder, depression, hopeless, panic disorder, schizophrenia, sleepless, suicidal, others All Other Systems: Reviewed and Negative Physical Exam General Appearance: Moderate Distress ([id number] distress due to chest pain concerns. Patient appears to be in poor overall health.), Normal HEENT: Normal ENT Inspection, Pharynx Normal, TMs Normal Neck: Full Range of Motion, Non-Tender, Normal, Normal Inspection Respiratory: Lungs Clear, No Accessory Muscle Use, No Respiratory Distress, Normal Breath Sounds Cardiovascular: No Edema, No JVD, No Murmur, No Gallop, Normal Peripheral P ulses, Regular Rate/Rhythm Breast Exam: Deferred Gastrointestinal: No Organomegaly, Non Tender, No Pulsatile Mass, Normal Bowel Sounds, Soft Genitalia: Deferred Pelvic: Deferred Rectal: Deferred Extremities: No calf tenderness, Normal capillary refill, Normal inspection, No pedal edema Musculoskeletal : Apperance: Normal Neurologic: Alert, Normal Affect, Normal Mood, No Sensory Deficits Cerebellar Function: NOT DONE Reflexes: NOT DONE Skin: Dry, Normal Color, Warm Lymphatic: No Adenopathy Was a procedure done? Was a procedure done?: No Differential Dx Considerations may include: Acute coronary syndrome, sepsis, electrolyte abnormality, pneumonia, rate of intrapulmonary concern, intracranial mass X-Ray, Labs, Meds, VS Vital Signs Date Time Temp Pulse Resp B/P (MAP) Pulse Ox O2 Delivery O2 Flow Rate FiO2 03/19/25 16:36 52 03/19/25 15:42 61 03/19/25 15:40 98.7 62 18 133/86 (102) 95 98.7 Lab Test 5/22/25 18:51 03/19/25 16:43 03/19/25 15:50 03/19/25 15:40 Range/Units Troponin I High Sensitivity 76 *H 64 *H 63 *H </=34 ng/L Urine Color Light-yellow Yellow Urine Clarity Clear Clear Urine pH 5.0 5.0-9.0 Urine Specific [place] 1.009 1.001-1.035 Urine Protein Negative Negative Urine Ketones Negative Negative Urine Blood Negative Negative /uL Urine Nitrite Negative Negative Urine Bilirubin Negative Negative Urine Urobilinogen Normal Negative mg/dL Urine Leukocyte Esterase Negative Negative /uL Urine RBC <1 0 - 4 /hpf Urine Microscopic WBC < 1 0-5 /HPF Urine Squamous Epithelial Cells Few <5 /hpf Urine Bacteria None seen None Seen /hpf Urine Glucose Normal Normal mg/dL White Blood Count 4.9 4.4-10.8 10^3/uL Red Blood Count 4.14 4.0-5.20 10^6/uL Hemoglobin 11.6 L 12.2-16.2 g/dL Hematocrit 35.7 L 36.0-46.0 % Mean Corpuscular Volume 86.2 80.0-100.0 fL Mean Corpuscular Hemoglobin 28.0 28.0-32.0 pg Mean Corpuscular Hemoglobin Concent 32.5 32.0-36.0 g/dL Red Cell Distribution Width 19.7 H 11.8-14.3 % Platelet Count 196 140-450 10^3/uL Mean Platelet Volume 9.5 6.9-10.8 fL Neutrophils (%) (Auto) 61.8 37.0-80.0 % Lymphocytes (%) (Auto) 28.5 10.0-50.0 % Monocytes (%) (Auto) 8.0 0.0-12.0 % Eosinophils (%) (Auto) 0.8 0.0-7.0 % Basophils (%) (Auto) 0.9 0.0-2.0 % Neutrophils # (Auto) 3.0 1.6-8.6 10 ^3/uL Lymphocytes # (Auto) 1.4 0.4-5.4 10 ^3/uL Monocytes # (Auto) 0.4 0-1.3 10 ^3/uL Eosinophils # (Auto) 0 0-0.8 10 ^3/uL Basophils # (Auto) 0 0-0.2 10 ^3/uL Nucleated Red Blood Cells 0.2 % Sodium Level 136 136-145 mmol/L Potassium Level 3.7 3.5-5.1 mmol/L Chloride Level 98 98-107 mmol/L Carbon Dioxide Level 33 H 20-31 mmol/L Anion Gap 5 5-15 Blood Urea Nitrogen 18 9-23 mg/dL Creatinine 1.29 H 0.550-1.02 mg/dL Glomerular Filtration Rate Calc 50 >90 mL/min BUN/Creatinine Ratio 14.0 10.0-20.0 Serum Glucose 98 74-106 mg/dL Lactic Acid Level 0.8 0.4-2.0 mmol/L Calcium Level 9.2 8.7-10.4 mg/dL Total Bilirubin < 0.2 L 0.2-1.0 mg/dL Aspartate Amino Transferase (AST) 24 13-40 U/L Alanine Aminotransferase (ALT) 13 7-40 U/L Alkaline Phosphatase 59 46-116 U/L B-Type Natriuretic Peptide 46.21 0-100 pg/mL Total Protein 9.3 H 5.7-8.2 g/dL Albumin 4.1 3.2-4.8 g/dL Lipase 36 12-53 U/L X-Ray, Labs, Meds, VS Comment All studies performed the ED were evaluated by me personally. Serum laboratories remarkable for a elevated troponin. EKG showed a sinus rhythm with a rate of 61. Borderline repolarization abnormality as well as borderline ST elevation in lateral leads and baseline wander in lead V3. RI interval 151 and QT interval of 382. Chest x-ray was unremarkable for any consolidation or signs of intrapulmonary concerns. Head CT was unremarkable for any intracranial process or neoplasm. Due to the elevated troponins and the questionable EKG, patient will be admitted for an acute coronary syndrome and receive cardiac evaluation. Time of 1ST Reevaluation: 20:01 Reevaluation 1ST: Improved Consultation: PCP, Cardiology Patient Education/Counseling: Diagnosis, Treatment Family Education/Counseling: Diagnosis, Treatment, No Family Present Sepsis Sepsis Reasesment Focused Exam Orders: Laboratory Tests 03/19/25 15:40: Lactic Acid Level 0.8 Departure 1 Departure Time of Disposition: 20:02 Impression: Primary Impression: Acute coronary syndrome Additional Impression: Elevated troponin I level Disposition: ADMITTED INPATIENT Condition: Stable Discharged With: Self Critical Care Note Critical Care Time?: No Stability Stability form required: No Heart Score Heart Score: Heart Score Response (Comments) Value History Slightly Suspicious 0 EKG Repolarization Disturb 1 Age 45-64 1 Risk Factors 1 or 2 risk factors 1 Troponin 1-2 x's Normal limit 1 Total 4 I personally scribed for JORGE OBRIEN PAC ([email or web address]) on 03/19/25 at 16:40. Electronically submitted by Jesse Smallwood ([email or web address]). JORGE OBRIEN PAC March 19, 2025 16:40
[2025-03-19 17:21] LABS: Urine Bacteria None Seen /hpf (None Seen)
--- NOTE | 2025-03-19 17:26 | DVH ---
EXAM: CT Head Without Intravenous Contrast CLINICAL INDICATION: Dizziness TECHNIQUE: Axial computed tomography images of the head/brain without intravenous contrast. This CT exam was performed using one or more of the following dose reduction techniques: automated exposure control, adjustment of the mA and/or kV according to patient size, and/or use of iterative reconstru ction technique. CONTRAST: RADIATION DOSE: CTDIvol = 53.99 mGy, DLP = 863.9 mGy-cm COMPARISON: None FINDINGS: BRAIN AND EXTRA-AXIAL SPACES: Unremarkable. No hemorrhage. No significant white matter disease. No edema. No ventriculomegaly. BONES/JOINTS: Unremarkable. No acute fracture. SOFT TISSUES: Unremarkable. SINUSES: Unremarkable as visualized. No acute sinusitis. MASTOID AIR CELLS: Unremarkable as visualized. No mastoid effusion. OTHER FINDINGS: . IMPRESSION: No acute intracranial hemorrhage, midline shift or mass effect.
[2025-03-19 18:28] LABS: Urine Blood Negative /uL (Negative); Urine Clarity Clear (Clear); Urine Color Light-Yellow (Yellow); Urine Protein, UAD Negative (Negative); Urine Specific Gravity 1.009 (1.001-1.035); Urine Squamous Epithelial Cell FEW /hpf (<5); Urine Urobilinogen Normal (Negative); Urine WBC < 1 /HPF (0-5)
--- NOTE | 2025-03-19 19:07 | ECG ---
[facility] Test Date: 2025-03-19 Test Time: 16:33:35 Pat Name: RIA NOONAN Department: ED Room: Gender: F Patient Admitting Clerk: GEREMIAS : 1974-05-13 Requested By: JORGE OBRIEN Order Number: [id number] Reading MD: Amrit Montemayor Measurements Intervals [place] Rate: 52 P: 27 NE: 155 QRS: -11 QRSD: 79 T: 54 QT: 436 QTc: 406 Interpretive Statements Sinus rhythm Electronically Signed On 03-23-2025 11:57:35 PDT by Amrit Montemayor Please click the below link to view image of tracing.
[2025-03-19 21:13] VITALS: BP 144/96; PULSE 64; RESP 14; TEMP 98.4; O2SAT 99
--- NOTE | 2025-03-20 06:15 | ECG ---
[facility] Test Date: 2025-03-19 Test Time: 15:42:04 Pat Name: RIA NOONAN Department: ER Room: Gender: F Community Service Specialist: RAZIA : 1974-05-13 Requested By: JORGE OBRIEN Order Number: [id number] Reading MD: Amrit Montemayor Measurements Intervals [place] Rate: 61 P: 73 [place]: 151 QRS: 81 QRSD: 101 T: -14 QT: 382 QTc: 385 Interpretive Statements Sinus rhythm Borderline repolarization abnormality Borderline ST elevation, lateral leads Baseline wander in lead(s) V3 Electronically Signed On 03-23-2025 11:56:52 PDT by Amrit Montemayor Please click the below link to view image of tracing.
== END 2025-03-19 21:36 | disposition left against medical advice (07) ==
LOC: ER 15:34
DX: I24.9 Acute ischemic heart disease, unspecified (principal); M25.511 Pain in right shoulder; I11.0 Hypertensive heart disease with heart failure; I50.9 Heart failure, unspecified; J44.9 Chronic obstructive pulmonary disease, unspecified; D64.9 Anemia, unspecified; R51.9 Headache, unspecified; Z79.899 Other long term (current) drug therapy; Z98.890 Other specified postprocedural states
CPT/HCPCS: 36415; 70450; 71045; 80053; 81001; 83605; 83690; 83880; 84484; 85025; 93005